=== PATIENT | female | born 1945 | race Caucasian/White ===

== ENCOUNTER 2020-02-04 08:21 | Outpatient (REF) | payer MEDICARE, OTHER, SELFPAY ==
[2020-02-04 09:25] LABS: MANUAL DIFF FLAG NO
[2020-02-04 09:28] LABS: Basophils Percent Auto 0.5 % (0-2); Eosinophils Absolute Auto 0.1 X10*3/uL (0.0-0.4); Eosinophils Percent Auto 2.1 % (0-4); Hematocrit 42.9 % (37-47); Hemoglobin 13.6 g/dl (12.0-16.0); Imm Gran Abs Auto 0.01 X10*3/uL (0.00-0.03); Imm Gran Pct Auto 0.2 % (0.0-0.4); Lymphocytes Absolute Auto 1.4 X10*3/uL (1.2-4.9); Lymphocytes Percent Auto 24.4 % (20-40); Mean Corpuscular HGB Conc 31.7 g/dl (31.0-35.0); Mean Corpuscular Volume 88.5 fL (80-98); Mean Platelet Volume 10.6 fL (9.4-12.3); Monocytes Absolute Auto 0.6 X10*3/uL (0.1-1.2); Monocytes Percent Auto 9.6 % (2-11); Neutrophils Absolute Auto 3.6 X10*3/uL (2.0-8.3); Neutrophils Percent Auto 63.2 % (45-73); Platelet Count 238 X10*3/uL (160-400); Red Blood Count 4.85 X10*6/uL (4.20-5.50); Red Cell Distribution Width 13.3 % (11.0-16.0); White Blood Count 5.7 X10*3/uL (4.8-10.8)
[2020-02-04 09:53] LABS: Alanine Aminotransferase 16 U/L (0-31); Albumin Level 4.3 g/dL (3.5-5.0); Alkaline Phosphatase 95 U/L (39-117); Anion Gap 13 (12-20); Aspartate Amino Transferase 16 U/L (5-31); Bilirubin Total 0.4 mg/dL (0.0-1.0); Blood Urea Nitrogen 23 mg/dL (9-16); Carbon Dioxide 27 mmol/L (22-29); Chloride 105 mmol/L (96-108); Cholesterol 206 mg/dL; Estimated Glomerular Filt Rate > 60; Glucose Fasting 116 mg/dL (60-99); HDL Cholesterol 72 mg/dL; LDL Cholesterol Calculated 120 mg/dl; Potassium 4.4 mmol/l (3.3-5.1); Sodium 141 mmol/L (135-145); Total Protein 6.7 g/dL (6.5-8.0); Triglycerides 71 mg/dL
[2020-02-04 10:29] LABS: Creatinine Urine 142.18 mg/dL; Microalbum/Creatinine Ratio Ur 14.7 ug/mg cr
== END 2020-02-04 08:22 | disposition home or self-care (01) ==
LOC: HO.LAB 08:21
PROVIDERS: PCP Physician Assistant; Visit Provider Physician Assistant
DX: I10 Essential (primary) hypertension (principal)
CPT/HCPCS: 36415; 80053; 80061; 82043; 85025

== ENCOUNTER 2020-07-29 10:01 | Outpatient (REF) | payer MEDICARE, OTHER, SELFPAY ==
--- NOTE | ~2020-07-29 | MM_ITS ---
EXAMINATION: MM SCREENING DIGITAL BREAST TOMOSYNTHESIS, BILATERAL CLINICAL INFORMATION: Screening. Asymptomatic. The lifetime risk of breast cancer based on the Tyrer-Cuzick Model is 5%. COMPARISON: Mammography: 07/28/2019, 03/17/2017, 02/26/2016 TECHNIQUE: Digital breast tomosynthesis is performed in both the craniocaudal and mediolateral oblique views along with computer-aided detection (CAD). Synthesized 2D images are generated from the tomosynthesis. FINDINGS: There are scattered areas of fibroglandular density (ACR BI-RADS breast composition Category b). There are no significant masses, abnormal calcifications, or other abnormalities. Parenchymal pattern is similar to prior studies. No developing density. No significant changes. MM/MM tomosynthesis screening BI IMPRESSION: No significant changes from prior studies. ASSESSMENT: BI-RADS 2: Benign RECOMMENDATION: Routine annual mammography screening. This patient's information was entered into a reminder system with a target due date for their next mammogram.
== END 2020-07-29 10:02 | disposition home or self-care (01) ==
LOC: HO.MAMMO 10:01
PROVIDERS: PCP Physician Assistant; Visit Provider Physician Assistant
DX: Z12.31 Encounter for screening mammogram for malignant neoplasm of breast (principal)
CPT/HCPCS: 77063; 77067

== ENCOUNTER 2020-08-25 10:10 | Outpatient (REF) | payer MEDICARE, OTHER, SELFPAY ==
[2020-08-25 10:53] LABS: Hematocrit 42.7 % (37-47); Mean Corpuscular HGB Conc 32.8 g/dl (31.0-35.0); Mean Corpuscular Hemoglobin 28.4 pg (27.0-33.0); Mean Corpuscular Volume 86.6 fL (80-98); Mean Platelet Volume 9.9 fL (9.4-12.3); Platelet Count 259 X10*3/uL (160-400); Red Blood Count 4.93 X10*6/uL (4.20-5.50); Red Cell Distribution Width 14.2 % (11.0-16.0); White Blood Count 7.2 X10*3/uL (4.8-10.8)
[2020-08-25 11:15] LABS: Estimated Average Glucose 126 mg/dL
[2020-08-25 11:24] LABS: Alanine Aminotransferase 16 U/L (0-31); Albumin Level 4.6 g/dL (3.5-5.0); Alkaline Phosphatase 105 U/L (39-117); Anion Gap 14 (12-20); Aspartate Amino Transferase 18 U/L (5-31); Bilirubin Total 0.5 mg/dL (0.0-1.0); Blood Urea Nitrogen 22 mg/dL (9-16); Calcium 10.1 mg/dL (8.4-10.2); Carbon Dioxide 28 mmol/L (22-29); Chloride 103 mmol/L (96-108); Cholesterol 222 mg/dL; Estimated Glomerular Filt Rate > 60; Glucose Fasting 108 mg/dL (60-99); HDL Cholesterol 81 mg/dL; LDL Cholesterol Calculated 125 mg/dl; Potassium 4.5 mmol/L (3.3-5.1); Sodium 140 mmol/L (135-145); Total Protein 7.1 g/dL (6.5-8.0); Triglycerides 84 mg/dL
== END 2020-08-25 10:11 | disposition home or self-care (01) ==
LOC: HO.LAB 10:10
PROVIDERS: PCP Physician Assistant; Visit Provider Physician Assistant
DX: R73.09 Other abnormal glucose (principal); I10 Essential (primary) hypertension
CPT/HCPCS: 36415; 80053; 80061; 83036; 85027

== ENCOUNTER 2020-10-05 13:19 | Outpatient (REF) | payer MEDICARE, OTHER, SELFPAY ==
--- NOTE | ~2020-10-05 | MM_ITS ---
EXAMINATION: BONE DENSITOMETRY CLINICAL INDICATION: Asymptomatic menopausal state. COMPARISON: Previous BD dated 07/28/2008 and baseline BD dated 04/19/2006. TECHNIQUE: Using a [employer] DXA System (software version: 13.1) manufactured by [employer], dual-energy x-ray absorptiometry was performed of the lumbar spine and left hip. The images are of good technical quality. Summary results are attached. FINDINGS: AP SPINE L1-L4: Current: BMD 1.090 g/cm2, Z-score 0.8, T-score -0.7, normal, 0.3% increase from previous, 2.6% decrease from baseline (<5% change is not significant). Prior: BMD 1.087 g/cm2. Baseline: BMD 1.119 g/cm2. LEFT FEMUR, NECK: Current: BMD 0.640 g/cm2, Z-score -1.1, T-score -2.9, osteoporosis. Prior: BMD 0.713 g/cm2. Baseline: BMD 0.748 g/cm2. LEFT FEMUR, TOTAL: Current: BMD 0.821 g/cm2, Z-score 0.1, T-score -1.5, osteopenia, 2.3% decrease from previous, 3.1% decrease from baseline (<5% change is not significant). Prior: BMD 0.840 g/cm2. Baseline: BMD 0.847 g/cm2. IDENTIFIED RISK FACTORS: Height loss, thiazide, menopause, hysterectomy, bilateral oophorectomy. HISTORY OF FRACTURE: None listed. MEDICATIONS: Calcium supplements or multivitamin, vitamin D. MM/XR DEXA axial skeleton IMPRESSION: 1. DIAGNOSIS: Osteoporosis based on the lowest T-score value of -2.9 in the femoral neck applying World Health Organization criteria. 2. 10-YEAR FRACTURE RISK PREDICTION, FRAX: Major osteoporotic fracture (clinical spine, forearm, hip or shoulder) 18.6%. Hip fracture 6.5%. 3. Treatment Recommendations: NOF guidelines recommend consideration for treatment in postmenopausal women and men age 50 and older presenting with the following: -A hip or vertebral (clinical or morphometric) fracture. -T-score less than or equal to -2.5 at the femoral neck or spine after appropriate evaluation to exclude secondary causes. -Low bone mass at the hip or spine and a 10-year fracture probability by FRAX of greater than or equal to 3% for hip fracture or greater than or equal to 20% for major osteoporotic fracture based on the [place] adapted WHO algorithm. 4. Other Recommendations: All treatment decisions require clinical judgment and consideration of individual patient factors, including patient preferences, comorbidities, previous drug use, risk factors not captured in the FRAX model (e.g. frailty, falls, vitamin D deficiency, increased bone turnover, interval significant decline in bone density) and possible under or overestimation of fracture risk by FRAX. Additional medical evaluation for secondary cause of low bone mineral density may be appropriate. FUTURE SCAN RECOMMENDATION: People with diagnosed cases of osteoporosis or at high risk for fracture should have regular bone mineral density tests. For patients eligible for Medicare, routine testing is allowed once every 2 years. The testing frequency can be increased to one year for patients who have rapidly progressing disease, those who are receiving or discontinuing medical therapy to restore bone mass, or have additional risk factors.
== END 2020-10-05 13:20 | disposition home or self-care (01) ==
LOC: HO.MAMMO 13:19
PROVIDERS: Visit Provider Nurse Practitioner Family
DX: Z13.820 Encounter for screening for osteoporosis (principal); M81.0 Age-related osteoporosis without current pathological fracture; Z78.0 Asymptomatic menopausal state; Z98.890 Other specified postprocedural states; Z90.722 Acquired absence of ovaries, bilateral; Z79.899 Other long term (current) drug therapy
CPT/HCPCS: 77080

== ENCOUNTER 2021-08-02 07:23 | Outpatient (REF) | payer MEDICARE, OTHER, SELFPAY ==
--- NOTE | ~2021-08-02 | MM_ITS ---
EXAMINATION: MM SCREENING DIGITAL BREAST TOMOSYNTHESIS, BILATERAL CLINICAL INFORMATION: Screening. Asymptomatic. The lifetime risk of breast cancer based on the Tyrer-Cuzick Model is 5%. COMPARISON: Mammography: 07/29/2020, 07/28/2019, 03/17/2017 TECHNIQUE: Digital breast tomosynthesis is performed in both the craniocaudal and mediolateral oblique views along with computer-aided detection (CAD). Synthesized 2D images are generated from the tomosynthesis. FINDINGS: There are scattered areas of fibroglandular density (ACR BI-RADS breast composition Category b). There are no significant masses, abnormal calcifications, or other abnormalities. Parenchymal pattern is similar to prior exams. Small nodular asymmetry anterior outer left breast and mid outer right breast are stable. No developing density or architectural abnormality. There are scattered benign round and some ductal secretory calcifications. The axilla and skin contours are unremarkable. MM/MM tomosynthesis screening BI IMPRESSION: No mammographic evidence of malignancy. ASSESSMENT: BI-RADS 2: Benign RECOMMENDATION: Routine annual mammography screening. This patient's information was entered into a reminder system with a target due date for their next mammogram.
== END 2021-08-02 07:24 | disposition home or self-care (01) ==
LOC: HO.MAMMO 07:23
PROVIDERS: PCP Physician Assistant; Visit Provider Physician Assistant
DX: Z12.31 Encounter for screening mammogram for malignant neoplasm of breast (principal)
CPT/HCPCS: 77063; 77067

== ENCOUNTER 2022-08-04 11:15 | Outpatient (REF) | payer MEDICARE, OTHER, SELFPAY ==
--- NOTE | ~2022-08-04 | MM_ITS ---
EXAMINATION: MM SCREENING DIGITAL BREAST TOMOSYNTHESIS, BILATERAL CLINICAL INFORMATION: Screening. Asymptomatic. The lifetime risk of breast cancer based on the Tyrer-Cuzick Model is 5.7%. COMPARISON: Mammography: This study is compared with prior mammograms dating back to 2018. TECHNIQUE: Digital breast tomosynthesis is performed in both the craniocaudal and mediolateral oblique views along with computer-aided detection (CAD). Synthesized 2D images are generated from the tomosynthesis. FINDINGS: There are scattered areas of fibroglandular density (ACR BI-RADS breast composition Category b). There are no significant masses, abnormal calcifications, or other abnormalities. MM/MM tomosynthesis screening BI IMPRESSION: No mammographic evidence of malignancy. ASSESSMENT: BI-RADS BI-RADS 1 - Negative RECOMMENDATION: Routine annual mammography screening. 1 year F/U This patient's information was entered into a reminder system with a target due date for their next mammogram.
== END 2022-08-04 11:16 | disposition home or self-care (01) ==
LOC: HO.MAMMO 11:15
PROVIDERS: Visit Provider Physician Assistant
DX: Z12.31 Encounter for screening mammogram for malignant neoplasm of breast (principal)
CPT/HCPCS: 77063; 77067

== ENCOUNTER → 2022-08-04 11:30 | Outpatient (BNV) | payer MEDICARE, OTHER, SELFPAY | PROVIDERS: Visit Provider Radiology Diagnostic Radiology | DX: Z12.31 Encounter for screening mammogram for malignant neoplasm of breast (principal) | CPT/HCPCS: 77063; 77067 ==

== ENCOUNTER 2022-09-28 07:30 | Outpatient (REF) | payer MEDICARE, OTHER, SELFPAY ==
[2022-09-28 09:07] LABS: Hematocrit 43.3 % (37.0-47.0); Mean Corpuscular HGB Conc 32.3 g/dl (31.0-35.0); Mean Corpuscular Hemoglobin 28.3 pg (27.0-33.0); Mean Corpuscular Volume 87.7 fL (80.0-98.0); Mean Platelet Volume 10.3 fL (9.4-12.3); Platelet Count 251 X10*3/uL (160-400); Red Blood Count 4.94 X10*6/uL (4.20-5.50); Red Cell Distribution Width 13.6 % (11.0-16.0); White Blood Count 6.3 X10*3/uL (4.8-10.8)
[2022-09-28 09:41] LABS: Alanine Aminotransferase 15 U/L (0-31); Albumin Level 4.1 g/dL (3.5-5.0); Alkaline Phosphatase 83 U/L (39-117); Anion Gap 13 (12-20); Aspartate Amino Transferase 15 U/L (5-31); Bilirubin Total 0.4 mg/dL (0.0-1.0); Blood Urea Nitrogen 17 mg/dL (9-16); Calcium 9.5 mg/dL (8.4-10.2); Carbon Dioxide 27 mmol/L (22-29); Chloride 106 mmol/L (96-108); Cholesterol 198 mg/dL (<200); Estimated Glomerular Filt Rate > 60; Glucose Fasting 101 mg/dL (60-99); HDL Cholesterol 75 mg/dL (>40); LDL Cholesterol Calculated 103 mg/dL (<100); Potassium 4.2 mmol/L (3.3-5.1); Sodium 142 mmol/L (135-145); Total Protein 6.9 g/dL (6.5-8.0); Triglycerides 103 mg/dL (<150)
[2022-09-28 10:02] LABS: TSH reflex Free T4 1.58 uIU/mL (0.32-4.0)
[2022-09-28 10:27] LABS: Estimated Average Glucose 114 mg/dL; Hemoglobin A1c % 5.6 % (<6.0)
[2022-09-28 11:47] LABS: Creatinine Urine 73.95 mg/dL; Microalbumin Urine < 5.0 mg/L
== END 2022-09-28 07:31 | disposition home or self-care (01) ==
LOC: HO.LAB 07:30
PROVIDERS: PCP Physician Assistant; Visit Provider Physician Assistant
DX: I10 Essential (primary) hypertension (principal); E66.9 Obesity, unspecified; R73.09 Other abnormal glucose
CPT/HCPCS: 36415; 80053; 80061; 82043; 83036; 84443; 85027

== ENCOUNTER 2022-10-06 13:42 | Outpatient (REF) | payer MEDICARE, OTHER, SELFPAY ==
--- NOTE | ~2022-10-06 | MM_ITS ---
EXAMINATION: BONE DENSITOMETRY CLINICAL INDICATION: Menopause. COMPARISON: Previous BD dated 10/05/2020 and baseline BD dated 04/19/2006. TECHNIQUE: Using a [employer] DXA System (software version: 13.1) manufactured by [employer], dual-energy x-ray absorptiometry was performed of the lumbar spine and left hip. The images are of good technical quality. Summary results are attached. FINDINGS: LEFT FEMUR, NECK: Current: BMD 0.692 g/cm2, Z-score -0.7, T-score -2.5, osteoporosis. Prior: BMD 0.640 g/cm2. Baseline: BMD 0.748 g/cm2. LEFT FEMUR, TOTAL: Current: BMD 0.826 g/cm2, Z-score 0.2, T-score -1.4, osteopenia, 0.6% decrease from previous, 2.5% decrease from baseline (<5% change is not significant). Prior: BMD 0.821 g/cm2. Baseline: BMD 0.847 g/cm2. AP SPINE L1-L4 (excluding L3): The data of L1-L4 has been changed to exclude the L3 vertebral body, because degenerative sclerosis at this level may cause overestimation of lumbar spine density. Current: BMD 1.063 g/cm2, Z-score 0.6, T-score -0.9, normal, 0.6% decrease from previous, 7.6% decrease from baseline (<5% change is not significant). Prior: BMD 1.069 g/cm2. Baseline: BMD 1.150 g/cm2. IDENTIFIED RISK FACTORS: Menopause, hysterectomy, bilateral oophorectomy, thiazide. HISTORY OF FRACTURE: None listed. MEDICATIONS: Calcium, vitamin D. MM/XR DEXA axial skeleton IMPRESSION: 1. DIAGNOSIS: Osteoporosis based on the lowest T-score value of -2.5 in the femoral neck applying World Health Organization criteria. 2. 10-YEAR FRACTURE RISK PREDICTION, FRAX: According to the guidelines, FRAX calculation should only be performed on patients in the osteopenia bone density category. Therefore, FRAX was not performed on this patient. 3. Treatment Recommendations: NOF guidelines recommend consideration for treatment in postmenopausal women and men age 50 and older presenting with the following: -A hip or vertebral (clinical or morphometric) fracture. -T-score less than or equal to -2.5 at the femoral neck or spine after appropriate evaluation to exclude secondary causes. -Low bone mass at the hip or spine and a 10-year fracture probability by FRAX of greater than or equal to 3% for hip fracture or greater than or equal to 20% for major osteoporotic fracture based on the [place] adapted WHO algorithm. 4. Other Recommendations: All treatment decisions require clinical judgment and consideration of individual patient factors, including patient preferences, comorbidities, previous drug use, risk factors not captured in the FRAX model (e.g. frailty, falls, vitamin D deficiency, increased bone turnover, interval significant decline in bone density) and possible under or overestimation of fracture risk by FRAX. Additional medical evaluation for secondary cause of low bone mineral density may be appropriate. FUTURE SCAN RECOMMENDATION: People with diagnosed cases of osteoporosis or at high risk for fracture should have regular bone mineral density tests. For patients eligible for Medicare, routine testing is allowed once every 2 years. The testing frequency can be increased to one year for patients who have rapidly progressing disease, those who are receiving or discontinuing medical therapy to restore bone mass, or have additional risk factors.
== END 2022-10-06 13:43 | disposition home or self-care (01) ==
LOC: HO.MAMMO 13:42
PROVIDERS: PCP Physician Assistant; Visit Provider Physician Assistant
DX: Z13.820 Encounter for screening for osteoporosis (principal); Z78.0 Asymptomatic menopausal state; M81.0 Age-related osteoporosis without current pathological fracture
CPT/HCPCS: 77080

== ENCOUNTER → 2022-10-06 14:00 | Outpatient (BNV) | payer MEDICARE, OTHER, SELFPAY | PROVIDERS: PCP Physician Assistant; Visit Provider Radiology Diagnostic Radiology | DX: M81.0 Age-related osteoporosis without current pathological fracture (principal) | CPT/HCPCS: 77080 ==

== ENCOUNTER 2022-12-01 11:47 | Outpatient (AMB) | payer MEDICARE, OTHER, SELFPAY ==
--- NOTE | 2022-12-01 11:48 | AM.OFFVISMDC ---
Intake Vital Signs 12/01/22 11:49 Height 4 ft 10.5 in Weight 162 lb 0.2 oz BMI 33.3 BP 124/68 Blood Pressure Location Lt brachial Position Sitting Pulse 78 Pulse Source Pulse Oximeter Pulse Oximetry (%) 96 Oxygen Delivery Method Room Air Intake Visit Reasons: AWV/last 11/24/21. Intake Note: Patient is here for an Annual Wellness Visit. Adventure Therapist Required: No Allergies Seasonal Allergies Allergy (Verified 12/01/22 12:04) Sneezing Medication List - Last Reconciled 12/01/22 by BRITTANY Castillo alendronate 70 mg PO QWEEK 12 weeks calcium carbonate (Oyster Shell Calcium) 500 mg PO BID 90 days cholecalciferol (vitamin D3) 50 mcg PO DAILY 90 days hydrochlorothiazide 25 mg PO DAILY 90 days lisinopril 5 mg PO DAILY 90 days omeprazole 40 mg PO DAILY 90 days Fall Risk Assessment Fall risk assessment: No Falls in past year Date Fall Risk Assessed: 12/01/22 HPI AWV/last 11/24/21. HPI Details Patient is a 77-year-old female who presents today for subsequent wellness visit. Patient of FRANNIE Aguilar. Patient is up-to-date with her health preventative screenings. Colonoscopy is due in 2023. Bone density screen 10/2022 with osteoporosis. Mammogram 07/2022 which was normal. Patient declined flu vaccine. [place] of care was reviewed with the patient and she was provided with a screening schedule. End of life planning was discussed with the patient and she was provided with healthcare proxy and MOLST forms. [facility] Medical History Post-menopausal Surgical History History of colonoscopy History of excision of lesion History of total abdominal hysterectomy and bilateral salpingo-oophorectomy Family History Father CAD (coronary artery disease) Myocardial infarction Mother CAD (coronary artery disease) Myocardial infarction Social History Housing: House Alcohol intake: never Patient Tobacco Use Status: Former Tobacco user Quit Date: 1985 e-Cigarette/Vaping Use: Never Used Second Hand Smoke Exposure: No service: No Current occupational status: employed and retired Cognitive needs: No Hearing needs: No Vision needs: Yes (glasses) Questionnaire Medicare Wellness Checkup [age] What gender do you identify with?: female During the past 4 weeks, how much have you been bothered by emotional problems such as feeling anxious, depressed, irritable, sad or downhearted, and blue?: not at all During the past 4 weeks, has your physical & emotional health limited your social activities with family, friends, neighbors, or groups?: not at all During the past 4 weeks, how much bodily pain have you generally had?: no pain During the past 4 weeks, was someone available to help you if you needed & wanted help?: yes, as much as I wanted During the past 4 weeks, what was the hardest physical activity you could do for at least 2 minutes?: heavy Can you get to places out of walking distance without help? (For eg., can you travel alone on buses, taxis or drive your car?): Yes Can you go shopping for groceries or clothes without someone's help?: Yes Can you prepare your own meals?: Yes Can you do your housework without help?: Yes Because of any health problems, do you need the help of another person with your personal care needs such as eating, bathing, dressing or getting around the house?: No Can you handle your own money without help?: Yes During the past 4 weeks, how would you rate your health in general?: excellent During the past 4 weeks how have things been going for you?: very well; could hardly better Are you having difficulties driving your car?: no Do you always fasten your seat belt when you are in a car?: yes, usually During past 4 weeks, have you been bothered by the following: never: Falling or dizzy when standing up, Sexual problems?, Trouble eating well?, Teeth or denture problems?, Problems using the telephone? and Tiredness or fatigue? Have you fallen 2 or more times in the past year?: No Are you afraid of falling?: No Are you a smoker?: no During the past 4 weeks, how many drinks of wine, beer, or other alcoholic beverages did you have?: no alcohol at all Do you exercise for about 20 minutes 3 or more times a week?: yes, most of the time Have you been given information to help with the following?: no: Hazards in your house that might hurt you? and no: Keeping track of your medications? How often do you have trouble taking medicines the way you have been told to take them?: I always take medicine as prescribed How confident are you that you can control & manage most of your health problems?: very confident What is your race?: White Mini Mental State Exam (MMSE) Orientation What is the (year) (season) (date) (day) (month)?: year, season, date, day and month Score Score: 5 Activity of Daily Living Bathing - sponge bath, tub bath or shower: receives no assistance (gets in/out by self, if usual bathing means Dressing - getting clothes from closets & drawers, including inner/outer garments & fasteners.: gets clothes & gets completely dressed without help Toileting - going to the 'toilet room' for urine/bowel elimination & cleaning self/arranging clothes: goes to toilet room, cleans self, arranges clothes without help Transfer: moves in & out of bed and chair without help (may use support object) Continence: controls urination/bowel movements completely by self Feeding: feeds self without help Total Score: 0 Information obtained from: patient Using telephone: independent Traveling: independent Shopping: independent Preparing meals: independent Housework: independent Taking medicine: independent Managing money: independent PHQ-9 Over the last 2 weeks, how often have you been bothered by any of the following problems? 1. Little interest or pleasure in doing things: not at all 2. Feeling down, depressed, or hopeless: not at all 3. Trouble falling or staying asleep, or sleeping too much: not at all 4. Feeling tired or having little energy: not at all 5. Poor appetite or overeating: not at all 6. Feeling bad about yourself - or that you are a failure or have let yourself or your family down: not at all 7. Trouble concentrating on things, such as reading the newspaper or watching television: not at all 8. Moving or speaking so slowly that other people could have noticed. Or the opposite - being so fidgety or restless that you have been moving around a lot more than usual: not at all 9. Thoughts that you would be better off or of hurting yourself in some way: not at all Total score: 0 Depression Screening Interpretation: Negative Depression Screening Done: Yes 52547 - PHQ-9 Billing: Yes Source: Developed by Drs. Jose Orourke, Sheri Carbajal, Romeo Godinez and colleagues, with an educational candace from [employer]. MANJU-7 AMB Questionnaire MANJU-7 Date MANJU - 7 assessed: 05/09/22 Source: Developed by Drs. Jose Orourke, Sheri Carbajal, Romeo Godinez and colleagues, with an educational candace from [employer]. AUDIT C Alcohol Use Questionnaire (AUDIT-C) 1. How often do you have a drink containing alcohol?: Never Total Score: 0 Score Reviewed/Action Taken: No Thrive Questionnaire Date Thrive assessed: 05/09/22 Physical Exam Vital Signs: Last Vital Signs Pulse 78 12/01/22 11:49 BP 124/68 12/01/22 11:49 Pulse Ox 96 12/01/22 11:49 Oxygen Delivery Method Room Air 12/01/22 11:49 BMI result Body Mass Index 33.3 Const General: cooperative and no acute distress Orientation/consciousness: patient oriented x3 HEENT Other: Whisper test: pass Neuro Other: Balance: Normal Get up and walk: able to Romberg: negative Tandem gait: unable to General: patient oriented x3 Assessment & Plan Assessment & Plan (1) Adult general medical exam: Code(s): Z00.00 - Encounter for general adult medical examination without abnormal findings (2) Impaired glucose metabolism: Code(s): R73.09 - Other abnormal glucose Plan: A1c 5.6 09/2022 (3) HTN (hypertension): Code(s): I10 - Essential (primary) hypertension Qualifiers: Hypertension type: primary hypertension Qualified Code(s): I10 - Essential (primary) hypertension Plan: Continue current treatment. Reinforced low-sodium diet and exercise as tolerated. (4) GERD (gastroesophageal reflux disease): Code(s): K21.9 - Gastro-esophageal reflux disease without esophagitis Plan: Continue current treatment. Encouraged to avoid GERD trigger foods. (5) Osteoporosis: Code(s): M81.0 - Age-related osteoporosis without current pathological fracture Qualifiers: Osteoporosis type: age-related Presence of current pathological fracture: unspecified Qualified Code(s): M81.0 - Age-related osteoporosis without current pathological fracture Plan: On alendronate weekly (6) Obese: Code(s): E66.9 - Obesity, unspecified Qualifiers: Obesity type: due to excess calories Obesity classification: adult class 1 (BMI 30 - 34.9) Serious obesity comorbidity presence: without serious comorbidity Body mass index: BMI 33.0-33.9 Qualified Code(s): E66.09 - Other obesity due to excess calories; Z68.33 - Body mass index [BMI] 33.0-33.9, adult Plan: Healthy food choices and exercise as tolerated Quality Reporting (2019) Fall Risk Screening ([facility] 139) Last assessed Fall Risk: 12/01/22 Fall risk assessment: No Falls in past year Depression/Bipolar (159/160/161/177) PHQ-9: Total score: 0 Coding Level of Care Code Medicare Subsequent (G0439) Diagnoses Adult general medical exam Z00.00 Impaired glucose metabolism R73.09 Primary hypertension I10 Hypertension type: primary hypertension GERD (gastroesophageal reflux disease) K21.9 Age related osteoporosis, unspecified pathological fracture presence M81.0 Osteoporosis type: age-related Presence of current pathological fracture: unspecified Class 1 obesity due to excess calories without serious comorbidity with body mass index (BMI) of 33.0 to 33.9 in adult E66.09; Z68.33 Obesity type: due to excess calories Obesity classification: adult class 1 (BMI 30 - 34.9) Serious obesity comorbidity presence: without serious comorbidity Body mass index: BMI 33.0-33.9 CPT Codes Advance Care Planning - Time spent: 1-15 minutes, not on file ([id number]) Advance Care Planning Date of discussion: 12/01/22 Who was present: pt and social media designer Forms completed: None Time spent: 1-15 minutes, not on file Actual minutes spent: 3 Did not discuss due to Cultural/Spiritual beliefs: No
[2022-12-01 11:49] VITALS: BP 124/68; PULSE 78; O2SAT 96; BMI 33.3
== END 2022-12-01 12:12 | disposition home or self-care (01) ==
PROVIDERS: Visit Provider Nurse Practitioner Family
DX: Z00.00 Encounter for general adult medical examination without abnormal findings (principal); R73.09 Other abnormal glucose; I10 Essential (primary) hypertension; K21.9 Gastro-esophageal reflux disease without esophagitis; M81.0 Age-related osteoporosis without current pathological fracture; E66.09 Other obesity due to excess calories; Z68.33 Body mass index [BMI] 33.0-33.9, adult
CPT/HCPCS: 1124F; G0439

== ENCOUNTER 2022-12-22 10:19 | Outpatient (AMB) | payer MEDICARE, OTHER, SELFPAY ==
--- NOTE | 2022-12-22 11:27 | AM.OFFWIN_ITS ---
Intake Vital Signs 12/22/22 11:35 Height 4 ft 10.5 in Weight 160 lb 4 oz BMI 32.9 BP 130/80 Blood Pressure Location Lt brachial Position Sitting Pulse 89 Pulse Source Pulse Oximeter Temp 99.4 F Temp Source Temporal Artery Scan Pulse Oximetry (%) 97 Oxygen Delivery Method Room Air Intake Visit Reasons: EST/wheezing(lobby masked) Intake Note: pt is here for c/o wheezing Patient Tobacco Use Status: Former Tobacco user Quit Date: 1985 Allergies Seasonal Allergies Allergy (Verified 12/22/22 11:36) Sneezing Do you need a note to return to daycare/school/sports/work: Yes HPI HPI Comments History of Present Illness Details This is a 77-year-old female who presents to the office today for sick visit. Patient complaining of wheezing and dry cough x3 days. Patient states she has had some mild nasal congestion, rhinorrhea, and postnasal drip for the past several days. She started to develop a dry cough as well as wheezing about 3 days ago. She denies any shortness of breath. She denies any chest pain. She denies any fevers or chills. She denies any abdominal pain or nausea/vomiting/diarrhea. FORMERLY [facility], 1928–1983 Medical History Post-menopausal Surgical History History of colonoscopy History of excision of lesion History of total abdominal hysterectomy and bilateral salpingo-oophorectomy Family History Father CAD (coronary artery disease) Myocardial infarction Mother CAD (coronary artery disease) Myocardial infarction Social History Housing: House Alcohol intake: never Patient Tobacco Use Status: Former Tobacco user Quit Date: 1985 e-Cigarette/Vaping Use: Never Used Second Hand Smoke Exposure: No service: No Current occupational status: employed and retired Cognitive needs: No Hearing needs: No Vision needs: Yes (glasses) Review of Systems Const All systems reviewed & are unremarkable except as noted in HPI and below Reports no additional complaints Eyes Reports no additional complaints ENT Reports no additional complaints Card Reports no additional complaints Resp Reports no additional complaints GI Reports no additional complaints Reports no additional complaints Musc Reports no additional complaints Skin/Breast Reports system reviewed and no additional complaints, except as documented Neuro Reports no additional complaints Psych Reports no additional complaints Endo Reports no additional complaints Carmelo/Lymph Reports no additional complaints Aller/Immun Reports no additional complaints Physical Exam Vital Signs: Last Vital Signs Temp 99.4 F 12/22/22 11:35 Pulse 89 12/22/22 11:35 BP 130/80 12/22/22 11:35 Pulse Ox 97 12/22/22 11:35 Oxygen Delivery Method Room Air 12/22/22 11:35 BMI result Body Mass Index 32.9 Const Other: Vital signs reviewed. Constitutional: Non-toxic appearing. No acute distress. Well-developed and well-nourished. HEENT: Normocephalic and atraumatic. +Post-nasal drip. Skin: Warm and dry. No rashes or lesions noted. Neck: Full and painless range of motion. No cervical lymphadenopathy. Cardio: Regular rate and rhythm. No lower extremity edema. No JVD. Pulmonary: No respiratory distress. No accessory muscle usage. Scant expiratory wheezing throughout otherwise clear. Gastrointestinal: Soft, nontender, and nondistended in all 4 quadrants. Normoactive bowel sounds in all 4 quadrants. Genitourinary: No CVA tenderness. Musculoskeletal: Normal range of motion in joints throughout the body. No deformity or other signs of injury. Neuro: Alert and oriented x4. Cranial nerves 2-12 grossly intact. No focal deficits appreciated. Psych: Normal mood and affect. Assessment & Plan Assessment & Plan (1) Acute bronchitis: Code(s): J20.9 - Acute bronchitis, unspecified Plan This is a 77-year-old female presenting to the office complaining of a dry cough and wheezing x3 days. On physical examination, patient has scant expiratory wheezing throughout but her physical exam is otherwise benign her vital signs are stable and she is overall nontoxic appearing. History and physical most consistent with an acute bronchitis. Low suspicion for pneumonia at this time given no sputum production or fever/chills. Patient sent home on p.o. prednisone 40 mg daily x5 days as well as p.o. benzonatate 100 mg 3 times daily as needed for cough. Patient was advised to follow-up here or proceed to the emergency room if she were to develop sputum production, shortness of breath, or fever/chills. Patient verbalizes her understanding and she is in agreement with the plan. Medications: New prednisone 40 mg (2 x 20 mg) PO DAILY 10 tabs 0RF benzonatate 100 mg PO TID PRN 14 caps 0RF cough Coding Level of Care Code Est Pt Level 3 (06539) Diagnoses Acute bronchitis J20.9
[2022-12-22 11:35] VITALS: BP 130/80; PULSE 89; TEMP 37.4; O2SAT 97; BMI 32.9
== END 2022-12-22 12:08 | disposition home or self-care (01) ==
PROVIDERS: PCP Physician Assistant; Visit Provider Physician Assistant Medical
DX: J20.9 Acute bronchitis, unspecified (principal)
CPT/HCPCS: 99213

== ENCOUNTER 2022-12-26 09:10 | Outpatient (AMB) | payer MEDICARE, OTHER, SELFPAY ==
[2022-12-26 09:38] VITALS: BP 126/74; PULSE 87; TEMP 37.2; O2SAT 97; BMI 33.7
--- NOTE | 2022-12-26 09:38 | AM.OFFWIN_ITS ---
Intake Vital Signs 12/26/22 09:38 Height 4 ft 10 in Weight 161 lb 8 oz BMI 33.7 BP 126/74 Blood Pressure Location Lt brachial Position Sitting Pulse 87 Pulse Source Pulse Oximeter Temp 98.9 F Temp Source Oral Pulse Oximetry (%) 97 Oxygen Delivery Method Room Air Intake Visit Reasons: EP, cough, congestion, sore throat (masked) Intake Note: Patient is here with cough, congestion, still after being seen on Sunday. Patient Tobacco Use Status: Former Tobacco user Quit Date: 1985 Allergies Seasonal Allergies Allergy (Verified 12/26/22 09:39) Sneezing Do you need a note to return to daycare/school/sports/work: No HPI HPI Comments History of Present Illness Details Patient is a 77-year-old female in today for sick visit. She was last seen in this walk-in 4 days prior to arrival for symptoms of cough, congestion, and sore throat. She was given prednisone and Tessalon Perles to treat the cough. She returns today with similar symptoms but states that her cough is got worse. She has not tried any [id number] medications for relief. Denies any nausea vomiting, fevers, chills malaise. States that her sore throat is also got more. Denies chest pain or shortness of breath. She states she feels like she has mucus. In her chest and she just can not get it out. Patient's head is normocephalic, TMs clear intact pearly damon, clear nasal discharge, sinus tenderness, pharynx erythema. Patient has rhonchi in upper lobes bilaterally. Heart sounds regular rate and rhythm, S1-S2, no rubs gallops murmurs. Patient has no edema or swelling. This is likely to be upper respiratory infection, unlikely to be epiglottitis, acute respiratory distress, or pose a threat to the airway. Patient will be given short dose prednisone, azithromycin, and be instructed to take guanfacine to help with mucus clearance. Patient has also been instructed to stay adequately hydrated. She has been educated on side effects of medication and how to take appropriately. She has been educated on signs of worsening symptoms when to return to the walk-in or when to present to the ER. [facility] Medical History Post-menopausal Surgical History History of colonoscopy History of excision of lesion History of total abdominal hysterectomy and bilateral salpingo-oophorectomy Family History Father CAD (coronary artery disease) Myocardial infarction Mother CAD (coronary artery disease) Myocardial infarction Housing: House Alcohol intake: never Patient Tobacco Use Status: Former Tobacco user Quit Date: 1985 e-Cigarette/Vaping Use: Never Used Second Hand Smoke Exposure: No service: No Current occupational status: employed and retired Cognitive needs: No Hearing needs: No Vision needs: Yes (glasses) Review of Systems Const Details: Constitutional : No Weight loss, No Fever, No Chills, No Fatigue. ENT/Mouth : Admits sore throat, Admits Rhinorrhea Cardiovascular : No Chest Pain, No SOB, No Dyspnea on Exertion, No Orthopnea, No Edema, No Palpitations Respiratory : Admits Cough, Admits Sputum, No Wheezing Gastrointestinal : No Nausea, No Vomiting, No Diarrhea, No Constipation, No abdominal Pain, No Hematochezia, No Melena Heme/Lymph: No Bruising, No Bleeding,No Lymphadenopathy All other systems reviewed and are negative Physical Exam Vital Signs: Last Vital Signs Temp 98.9 F 12/26/22 09:38 Pulse 87 12/26/22 09:38 BP 126/74 12/26/22 09:38 Pulse Ox 97 12/26/22 09:38 Oxygen Delivery Method Room Air 12/26/22 09:38 BMI result Body Mass Index 33.7 Vital signs reviewed and stable Const Other: Appearance: Alert.? Oriented X3.? No acute distress.? Head: Normocephalic, atraumatic. Eyes: Pupils equal, round and reactive to light.? ENT: Pharynx erythema. Neck: Normal inspection.? Neck supple.? CVS: Normal heart rate and rhythm.? Pulses normal.? Respiratory: No respiratory distress.? Rhochi upper lobes bilaterally. ? Neuro: Oriented X 3.? No motor deficit.? No sensory deficit. General: cooperative and no acute distress Assessment & Plan Assessment & Plan (1) Upper respiratory infection: Code(s): J06.9 - Acute upper respiratory infection, unspecified Qualifiers: URI type: unspecified URI Qualified Code(s): J06.9 - Acute upper respiratory infection, unspecified Plan: Patient will be given short course steroids, azithromycin to be taken in its entirety and appropriately, and Mucinex. Patient has been instructed to stay hydrated and drink plenty of water to assist with mucus clearance. She has been educated that if she develops a fever, experiences shortness of breath, or sees no improvement to return to the walk-in clinic or to present to the emergency room. Patient is agreeable to this plan. Orders: Orders SARS-CoV2/FLU/RSV 12/26/22 J06.9 - Acute upper respiratory infection, unspecified Medications: New prednisone 20 mg PO BID 6 tabs 0RF azithromycin For 250 mg dose pack: take 500 mg today (day 1), then 250 mg for 4 days (days 2-5) PO 6 tabs 0RF Discontinued prednisone Discontinued Reason: Patient no longer taking 40 mg (2 x 20 mg) PO DAILY 10 tabs 0RF Coding Level of Care Code Est Pt Level 4 (25269) Diagnoses Upper respiratory tract infection, unspecified type J06.9 URI type: unspecified URI
== END 2022-12-26 10:21 | disposition home or self-care (01) ==
PROVIDERS: PCP Physician Assistant; Visit Provider Nurse Practitioner Primary Care
DX: J06.9 Acute upper respiratory infection, unspecified (principal)
CPT/HCPCS: 99214

== ENCOUNTER 2022-12-26 10:01 | Outpatient (REF) | payer MEDICARE, OTHER, SELFPAY ==
[2022-12-26 16:06] LABS: Influenza A PCR NEGATIVE (Negative); Influenza B PCR NEGATIVE (Negative); Resp Syncy Virus RNA Qual PCR NEGATIVE (Negative); SARS COV2 PCR INHOUSE NEGATIVE (Negative)
== END 2022-12-26 10:02 | disposition home or self-care (01) ==
LOC: HO.LAB 10:01
PROVIDERS: Visit Provider Nurse Practitioner Primary Care
DX: J06.9 Acute upper respiratory infection, unspecified (principal); Z11.52 Encounter for screening for COVID-19
CPT/HCPCS: 0241U

== ENCOUNTER 2023-05-29 11:21 | Outpatient (AMB) | payer MEDICARE, OTHER, SELFPAY ==
[2023-05-29 11:23] VITALS: BP 136/66; PULSE 70; O2SAT 98; BMI 33.9
--- NOTE | 2023-05-29 11:23 | A.OFFPC_ITS ---
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 Accompanied by: Self / Same As Patient Allergies Seasonal Allergies Allergy (Verified 05/29/23 11:39) Sneezing Medication List - Last Reconciled 05/29/23 by Don Aguilar PA-C alendronate 70 mg PO QWEEK 12 weeks calcium carbonate (Oyster Shell Calcium) 500 mg PO BID 90 days cholecalciferol (vitamin D3) 50 mcg PO DAILY 90 days hydrochlorothiazide 25 mg PO DAILY 90 days lisinopril 5 mg PO DAILY 90 days omeprazole 40 mg PO DAILY 90 days Tobacco use date assessed: 05/29/23 Fall risk assessment: No Falls in past year Last assessed Fall Risk: 05/29/23 Dental Screening Dental Screen Date: 05/29/23 Did you have a dental visit in the last 12 months?: No Did you have a dental problem in the last 6 months where you did not have access to dental care?: No Was dental information given to patient?: No (Dentures) HPI 6 month f/u HPI Details Patient is a 77-year-old female here today for follow-up visit. Patient has a past medical history significant for hypertension, osteoporosis, GERD. .. HTN: Patient's blood pressure today in office acceptable. .. GERD: Has been stable with daily use of PPI therapy. .. Obesity: BMI remains at 33.9. She does not do any formal exercise. Patient reports her diet has been poor. .. Osteoporosis: Patient continues on the alendronate. DEXA in 2020 showing T- score of-2.9. Dexa in 2022 showing T-score -2.5. Laboratory Tests 08/25/20 10:20 RBC 4.93 Creatinine 0.77 Cholesterol 222 LDL Cholesterol, C alc 125 PFSH Medical History Post-menopausal Surgical History History of colonoscopy History of excision of lesion History of total abdominal hysterectomy and bilateral salpingo-oophorectomy Family History Father CAD (coronary artery disease) Myocardial infarction Mother CAD (coronary artery disease) Myocardial infarction Social History Housing: House Alcohol intake: never Patient Tobacco Use Status: Former Tobacco user Quit Date: 1985 e-Cigarette/Vaping Use: Never Used Second Hand Smoke Exposure: No service: No Current occupational status: employed and retired Cognitive needs: No Hearing needs: No Vision needs: Yes (glasses) Questionnaire PHQ-9 Over the last 2 weeks, how often have you been bothered by any of the following problems? 1. Little interest or pleasure in doing things: not at all 2. Feeling down, depressed, or hopeless: not at all 3. Trouble falling or staying asleep, or sleeping too much: not at all 4. Feeling tired or having little energy: not at all 5. Poor appetite or overeating: not at all 6. Feeling bad about yourself - or that you are a failure or have let yourself or your family down: not at all 7. Trouble concentrating on things, such as reading the newspaper or watching television: not at all 8. Moving or speaking so slowly that other people could have noticed. Or the opposite - being so fidgety or restless that you have been moving around a lot more than usual: not at all 9. Thoughts that you would be better off or of hurting yourself in some wa y: not at all Total score: 0 Depression Screening Interpretation: Negative Depression Screening Done: Yes 62256 - PHQ-9 Billing: Yes Source: Developed by Drs. Jose Orourke, Sheri Carbajal, Romeo Godinez and colleagues, with an educational candace from [facility]. Thrive Questionnaire Date Thrive assessed: 05/29/23 I am a: Patient What is your living situation today?: I have a steady place to live Within the past 12 months, did the food you bought not last and you didn't have the money to get more?: Never true Within the past 12 months, did you worry whether your food would run out before you got money to buy more?: Never true Do you have trouble paying for medicines?: No Do you have trouble getting transportation to medical appointments?: No Do you have trouble paying your heating and electricity bill?: No Do you have trouble taking care of your child, family member or friend?: No Do you have trouble with day-to-day activities such as bathing, preparing meals, shopping, managing finances, etc.?: No Are you currently unemployed and looking for a job?: No Are you interested in more education?: No Please select the resources that you would like help with: None Currently or been in a relationship where the following occur: no concerns reported THRIVE Score: 0 AUDIT C Alcohol Use Questionnaire (AUDIT-C) 1. How often do you have a drink containing alcohol?: Never 3. How often do you have six or more drinks on one occasion?: Never Total Score: 0 Score Reviewed/Action Taken: No MANJU-7 AMB Questionnaire MANJU-7 Date MANJU - 7 assessed: 05/29/23 Feeling nervous, anxious, or on edge: 0 = Not at all Not being able to stop or control worryin = Not at all Worrying too much about different things: 0 = Not at all Trouble relaxin = Not at all Being so restless that it is hard to sit still: 0 = Not at all Becoming easily annoyed or irritable: 0 = Not at all Feeling afraid as if something awful might happen: 0 = Not at all Total MANJU-7 score (0-4 normal; 5-9 mild; 10-14 moderate; 15-21 severe): 0 Source: Developed by Drs. Jose Orourke, Sheri Carbajal, Romeo Godinez and colleagues, with an educational candace from [facility]. MANJU-7 Assessment Billing MANJU-7 Assessment Tool: MANJU-7 Assessment 88263 Review of Systems Const Denies headache(s) Eyes Denies loss of vision ENT Denies vertigo, Denies dizziness, Denies headache(s) and Denies sore throat Card Denies chest pain, Denies leg edema and Denies lightheadedness Resp Denies cough, Denies hemoptysis and Denies wheezing GI Denies abdominal pain, Denies melena, Denies constipation, Denies diarrhea and Denies vomiting Denies urinary frequency, Denies dysuria and Denies urinary urgency Musc Denies arthralgias, Denies joint swelling, Denies numbness and Denies tingling Neuro Denies Abnormal speech present, Denies behavioral changes, Denies vertigo, Denies dizziness, Denies headache(s), Denies loss of vision, Denies memory loss, Denies numbness and Denies tingling Psych Denies anxiety, Denies behavioral changes, Denies depression, Denies memory loss and Denies panic attacks Carmelo/Lymph Denies easy bleeding and Denies easy bruising Aller/Immun Denies wheezing Physical exam (Primary Care) Vital Signs: Last Vital Signs Pulse 70 05/29/23 11:23 BP 136/66 05/29/23 11:23 Pulse Ox 98 05/29/23 11:23 Oxygen Delivery Method Room Air 05/29/23 11:23 BMI result Body Mass Index 33.9 Tobacco/Smoking Status: Tobacco use Status Tobacco use date assessed 05/29/23 05/29/23 11:36 Patient Tobacco Use Status Former Tobacco user 05/29/23 11:25 e-Cigarette/Vaping Use Never Used 05/29/23 11:25 PHQ-9: PHQ-9 Score PHQ-9: Total score 0 05/29/23 11:40 Depression Screening Interpretation: Negative Thrive Assessment: Date of Thrive Assessment Date Thrive assessed 05/29/23 05/29/23 11:36 Currently or been in a relationship where the following occur: no concerns reported Const General: healthy appearing, no acute distress, alert and awake Nutritional Appearance: well nourished Orientation/consciousness: oriented to person, oriented to place and oriented to time HENMT Ears: TM's normal bilaterally General nose exam: Normal nasal mucous membranes and turbinates present Eyes Conjunctivae: conjunctivae normal Sclerae: sclerae normal Pupils: Equal, round and reactive pupils present Neck Neck: Yes no lymphadenopathy and Yes no JVD Thyroid: Thyroid normal Carotids: no bruits Resp Effort & Inspection: normal respiratory effort and not tachypneic Auscultation: no crackles, no rales, no rhonchi and no wheezes Cardio Rate: regular rate Rhythm: regular rhythm Heart sounds: no murmurs and normal S1 and S2 GI Palpation (GI): Soft to palpation, nontender, no hepatomegaly and no splenomegaly Auscultation: normal bowel sounds Skin General skin exam: no rashes or lesions noted and dry skin Neuro General: oriented to person, oriented to place and oriented to time Cranial nerves: Yes Equal, round and reactive pupils present Speech: No Abnormal speech present Gait exam (Neuro): Normal gait present Motor exam (neuro): no tremor noted Extrem Right upper extremity: full ROM Left upper extremity: full ROM Right lower extremity: full ROM; no edema Left lower extremity: full ROM; no edema Psych Mental Status: mental status grossly normal Speech and movement: Normal speech and movement present Affect: normal affect Attitude: cooperative Thought process: Normal thought process present Assessment and Plan Assessment & Plan (1) HTN (hypertension): Code(s): I10 - Essential (primary) hypertension Qualifiers: Hypertension type: primary hypertension Qualified Code(s): I10 - Essential (primary) hypertension Plan: Patient's blood pressure acceptable today in office. Will continue her current dose of antihypertensive medication with goal blood pressure to be 40/90 (2) Obese: Code(s): E66.9 - Obesity, unspecified Qualifiers: Body mass index: BMI 33.0-33.9 Obesity classification: adult class 1 (BMI 30 - 34.9) Obesity type: due to excess calories Serious obesity comorbidity presence: without serious comorbidity Qualified Code(s): E66.09 - Other obesity due to excess calories; Z68.33 - Body mass index [BMI] 33.0-33.9, adult Plan: Unfortunately has gained weight since last office visit. Patient reports dietary indiscretion. She recently joined a gym and plans on being more physically active to reduce her weight. (3) Impaired glucose metabolism: Code(s): R73.09 - Other abnormal glucose Plan: Patient has a history of impaired glucose metabolism in thus has been trying to work on lifestyle modifications to reduce her carbohydrates in her diet. Unfortunately has gained weight since last office visit. Will recheck fasting blood sugar to ensure not in diabetic range. (4) Colon cancer screening: Code(s): Z12.11 - Encounter for screening for malignant neoplasm of colon Plan: She is in need of screening colonoscopy. (5) Osteoporosis: Code(s): M81.0 - Age-related osteoporosis without current pathological fracture Qualifiers: Osteoporosis type: age-related Presence of current pathological fracture: unspecified Qualified Code(s): M81.0 - Age-related osteoporosis without current pathological fracture Plan: Patient continues on alendronate weekly. Most recent bone density showing improved T-score from -2.9 to -2.5 in the femoral neck. Orders: Orders Microalbumin, Random (w Creat) 05/29/23 I10 - Essential (primary) hypertension Hemoglobin A1c 05/29/23 R73.09 - Other abnormal glucose Complete Blood Count no Diff 05/29/23 I10 - Essential (primary) hypertension Comprehensive [place]. Panel Fast 05/29/23 I10 - Essential (primary) hypertension Referrals Gastroenterology Referral Z12.11 - Encounter for screening for malignant neoplasm of colon Patient Instructions: Goals: Blood pressure to remain below 140/90 Barriers: Compliance with healthy eating habits and exercise. Coding Level of Care Code Est Pt Level 4 (00585) Diagnoses Primary hypertension I10 Hypertension type: primary hypertension Class 1 obesity due to excess calories without serious comorbidity with body mass index (BMI) of 33.0 to 33.9 in adult E66.09; Z68.33 Body mass index: BMI 33.0-33.9 Obesity classification: adult class 1 (BMI 30 - 34.9) Obesity type: due to excess calories Serious obesity comorbidity presence: without serious comorbidity Impaired glucose metabolism R73.09 Colon cancer screening Z12.11 Age related osteoporosis, unspecified pathological fracture presence M81.0 Osteoporosis type: age-related Presence of current pathological fracture: unspecified Additional Codes MANJU-7 Assessment Billing - MANJU-7 Assessment Tool: MANJU-7 Assessment 06236 ([id number])
== END 2023-05-29 11:52 | disposition home or self-care (01) ==
PROVIDERS: PCP Physician Assistant; Visit Provider Physician Assistant
DX: I10 Essential (primary) hypertension (principal); E66.09 Other obesity due to excess calories; Z68.33 Body mass index [BMI] 33.0-33.9, adult; R73.09 Other abnormal glucose; Z12.11 Encounter for screening for malignant neoplasm of colon; M81.0 Age-related osteoporosis without current pathological fracture
CPT/HCPCS: 99214

== ENCOUNTER 2023-06-09 08:11 | Outpatient (REF) | payer MEDICARE, OTHER, SELFPAY ==
[2023-06-09 08:57] LABS: Hematocrit 44.5 % (37.0-47.0); Hemoglobin 14.3 g/dl (12.0-16.0); Mean Corpuscular HGB Conc 32.1 g/dl (31.0-35.0); Mean Corpuscular Hemoglobin 28.4 pg (27.0-33.0); Mean Corpuscular Volume 88.3 fL (80.0-98.0); Mean Platelet Volume 10.1 fL (9.4-12.3); Platelet Count 261 X10*3/uL (160-400); Red Blood Count 5.04 X10*6/uL (4.20-5.50); Red Cell Distribution Width 13.8 % (11.0-16.0); White Blood Count 6.5 X10*3/uL (4.8-10.8)
[2023-06-09 09:46] LABS: Alanine Aminotransferase 16 U/L (0-31); Albumin Level 4.4 g/dL (3.5-5.0); Alkaline Phosphatase 86 U/L (39-117); Anion Gap 16 (12-20); Aspartate Amino Transferase 17 U/L (5-31); Bilirubin Total 0.4 mg/dL (0.0-1.0); Blood Urea Nitrogen 19 mg/dL (9-16); Calcium 9.7 mg/dL (8.4-10.2); Carbon Dioxide 26 mmol/L (22-29); Chloride 104 mmol/L (96-108); Estimated Glomerular Filt Rate > 60; Glucose Fasting 109 mg/dL (60-99); Sodium 142 mmol/L (135-145); Total Protein 7.2 g/dL (6.5-8.0)
[2023-06-09 10:03] LABS: Estimated Average Glucose 123 mg/dL; Hemoglobin A1C 149.6344 umol/L; Hemoglobin A1c % 5.9 % (<6.0)
[2023-06-09 10:06] LABS: Creatinine Urine 134.88 mg/dL; Microalbum/Creatinine Ratio Ur 9.6 ug/mg cr (<30)
== END 2023-06-09 08:12 | disposition home or self-care (01) ==
LOC: HO.LAB 08:11
PROVIDERS: PCP Physician Assistant; Visit Provider Physician Assistant
DX: R73.09 Other abnormal glucose (principal); I10 Essential (primary) hypertension
CPT/HCPCS: 36415; 80053; 82043; 82570; 83036; 85027

== ENCOUNTER 2023-08-21 11:36 | Outpatient (REF) | payer MEDICARE, OTHER, SELFPAY ==
--- NOTE | ~2023-08-21 | MM_ITS ---
EXAMINATION: MM SCREENING DIGITAL BREAST TOMOSYNTHESIS, BILATERAL CLINICAL INFORMATION: Screening. Asymptomatic. COMPARISON: Mammography: This study is compared with prior exams dating back to 2019. TECHNIQUE: Digital breast tomosynthesis is performed in both the craniocaudal and mediolateral oblique views along with computer-aided detection (CAD). Synthesized 2D images are generated from the tomosynthesis. FINDINGS: There are scattered areas of fibroglandular density (ACR BI-RADS breast composition Category b). There are no significant masses, abnormal calcifications, or other abnormalities. Bilateral benign calcifications are present. MM/MM tomosynthesis screening BI IMPRESSION: No mammographic evidence of malignancy. ASSESSMENT: BI-RADS BI-RADS 2 - Benign Findings RECOMMENDATION: Routine annual mammography screening. 1 year F/U This examination should not preclude the clinical evaluation of a suspicious palpable abnormality. This patient's information was entered into a reminder system with a target due date for their next mammogram.
== END 2023-08-21 11:37 | disposition home or self-care (01) ==
LOC: HO.MAMMO 11:36
PROVIDERS: PCP Physician Assistant; Visit Provider Physician Assistant
DX: Z12.31 Encounter for screening mammogram for malignant neoplasm of breast (principal)
CPT/HCPCS: 77063; 77067

== ENCOUNTER → 2023-08-21 11:45 | Outpatient (BNV) | payer MEDICARE, OTHER, SELFPAY | PROVIDERS: PCP Physician Assistant; Visit Provider Radiology Diagnostic Radiology | DX: Z12.31 Encounter for screening mammogram for malignant neoplasm of breast (principal) | CPT/HCPCS: 77063; 77067 ==

== ENCOUNTER 2023-12-03 10:34 | Outpatient (AMB) | payer MEDICARE, OTHER, SELFPAY ==
[2023-12-03 10:48] VITALS: BP 120/68; PULSE 84; O2SAT 98; BMI 33.6
--- NOTE | 2023-12-03 10:48 | A.OFFVIS_ITS ---
Intake Vital Signs 12/03/23 10:48 Height 4 ft 10 in Weight 161 lb BMI 33.6 BP 120/68 Blood Pressure Location Lt brachial Position Sitting Pulse 84 Pulse Source Pulse Oximeter Pulse Oximetry (%) 98 Oxygen Delivery Method Room Air Intake Visit Reasons: AWV Allergies Seasonal Allergies Allergy (Verified 12/03/23 10:49) Sneezing Medication List - Last Reconciled 12/03/23 by Don Aguilar PA-C alendronate 70 mg PO QWEEK 12 weeks calcium carbonate (Oyster Shell Calcium) 500 mg PO BID 90 days cholecalciferol (vitamin D3) 50 mcg PO DAILY 90 days hydrochlorothiazide 25 mg PO DAILY 90 days lisinopril 5 mg PO DAILY 90 days omeprazole 40 mg PO DAILY 90 days HPI AWV HPI Details Patient is a 78-year-old female here today for annual wellness visit. Patient has a past medical history significant for hypertension, osteoporosis, GERD. Today we discussed patient's [place] of care and her end of life planning. We also did discuss her comprehensive care plan that was scanned into patient's file .. .. Osteoporosis: Patient continues on the alendronate. DEXA in 2020 showing T- score of-2.9. Dexa in 2022 showing T-score -2.5 Vaccines: Up-to-date with flu, COVID, pneumonia and tetanus vaccines. Colorectal cancer screening-followed by gastroenterology and has upcoming colonoscopy scheduled. Mammogram: Up-to-date Laboratory Tests 09/28/22 06/09/23 07:57 08:29 RBC 5.04 Creatinine 0.69 Fasting Glucose 109 H Cholesterol 198 LDL Cholesterol, C alc 103 H HPI Comments History of Present Illness Details reviewed past medical history- yes reviewed surgical / hospitalization history- yes reviewed current medications- yes reviewed family history- yes home safety throw rugs? grab bars? raised toilet seat? working smoke detectors? activities of daily living difficulty bathing or showering? difficulty dressing? difficulty using the toilet? difficulty getting in and out of bed? difficulty walking? receives help from other person's with any of the above tasks? instrumental activities of daily living uses telephone - gets to place out of walking distance- go shopping for groceries- repairs own meals- does own minor home maintenance- does own laundry- does own housework- manages own money- currently takes medication- end of life planning discussed advanced directives- yes advanced directives on file? discussed wishes expressed in advanced directives. fall risk have you had any falls with injuries in the past year? have you had 2 or more falls in the past year? fall risk assessment: [facility] Medical History Post-menopausal Surgical History History of colonoscopy History of excision of lesion History of total abdominal hysterectomy and bilateral salpingo-oophorectomy Family History Father CAD (coronary artery disease) Myocardial infarction Mother CAD (coronary artery disease) Myocardial infarction Social History Housing: House Alcohol intake: never Patient Tobacco Use Status: Former Tobacco user e-Cigarette/Vaping Use: Never Used Second Hand Smoke Exposure: No service: No Current occupational status: employed and retired Cognitive needs: No Hearing needs: No Vision needs: Yes (glasses) Questionnaire Medicare Wellness Checkup What [age] What gender do you identify with?: female During the past 4 weeks, how much have you been bothered by emotional problems such as feeling anxious, depressed, irritable, sad or downhearted, and blue?: not at all During the past 4 weeks, has your physical & emotional health limited your so cial activities with family, friends, neighbors, or groups?: not at all During the past 4 weeks, how much bodily pain have you generally had?: no pain During the past 4 weeks, was someone available to help you if you needed & wanted help?: yes, as much as I wanted During the past 4 weeks, what was the hardest physical activity you could do for at least 2 minutes?: moderate Can you get to places out of walking distance without help? (For eg., can you travel alone on buses, taxis or drive your car?): Yes Can you go shopping for groceries or clothes without someone's help?: Yes Can you prepare your own meals?: Yes Can you do your housework without help?: Yes Because of any health problems, do you need the help of another person with your personal care needs such as eating, bathing, dressing or getting around the house?: No Can you handle your own money without help?: Yes During the past 4 weeks, how would you rate your health in general?: excellent During the past 4 weeks how have things been going for you?: very well; could hardly better Are you having difficulties driving your car?: no Do you always fasten your seat belt when you are in a car?: yes, usually During past 4 weeks, have you been bothered by the following: never: Falling or dizzy when standing up, Sexual problems?, Trouble eating well?, Teeth or denture problems?, Problems using the telephone? and Tiredness or fatigue? Have you fallen 2 or more times in the past year?: No Are you afraid of falling?: No Are you a smoker?: no During the past 4 weeks, how many drinks of wine, beer, or other alcoholic beverages did you have?: no alcohol at all Do you exercise for about 20 minutes 3 or more times a week?: yes, most of the time Have you been given information to help with the following?: no: Hazards in your house that might hurt you? and no: Keeping track of your medications? How often do you have trouble taking medicines the way you have been told to take them?: I always take medicine as prescribed How confident are you that you can control & manage most of your health problems?: very confident What is your race?: White Mini Mental State Exam (MMSE) Orientation What is the (year) (season) (date) (day) (month)?: year Where are we (state) (county) (town or city) (hospital) (floor)?: town or city Attention & Calculation (CHOOSE ONE) Spell WORLD backwards (DLROW): 5 letters Score Score: 7 Activity of Daily Living Bathing - sponge bath, tub bath or shower: receives no assistance (gets in/out by self, if usual bathing means Dressing - getting clothes from closets & drawers, including inner/outer garments & fasteners.: gets clothes & gets completely dressed without help Toileting - going to the 'toilet room' for urine/bowel elimination & cleaning self/arranging clothes: goes to toilet room, cleans self, arranges clothes without help Transfer: moves in & out of bed and chair without help (may use support object) Continence: controls urination/bowel movements completely by self Feeding: feeds self without help Total Score: 0 Information obtained from: patient Using telephone: independent Traveling: independent Shopping: independent Preparing meals: independent Housework: independent Taking medicine: independent Managing money: independent PHQ-9 Over the last 2 weeks, how often have you been bothered by any of the following problems? 1. Little interest or pleasure in doing things: not at all 2. Feeling down, depressed, or hopeless: not at all 3. Trouble falling or staying asleep, or sleeping too much: not at all 4. Feeling tired or having little energy: not at all 5. Poor appetite or overeating: not at all 6. Feeling bad about yourself - or that you are a failure or have let yourself or your family down: not at all 7. Trouble concentrating on things, such as reading the newspaper or watching television: not at all 8. Moving or speaking so slowly that other people could have noticed. Or the opposite - being so fidgety or restless that you have been moving around a lot more than usual: not at all 9. Thoughts that you would be better off or of hurting yourself in some way: not at all Total score: 0 Depression Screening Interpretation: Negative Depression Screening Done: Yes 24410 - PHQ-9 Billing: Yes Source: Developed by Drs. Jose Orourke, Sheri Carbajal, Romeo Godinez and colleagues, with an educational candace from [email or web address]. Physical Exam Vital Signs: Last Vital Signs Pulse 84 12/03/23 10:48 BP 120/68 12/03/23 10:48 Pulse Ox 98 12/03/23 10:48 Oxygen Delivery Method Room Air 12/03/23 10:48 BMI result Body Mass Index 33.6 HEENT Other: hearing screening whisper test- pass Eyes Other: vision screening- 20 20 OS OD OU Other: urinary incontinence? no Neuro Other: balance Romberg- normal tandem walk test- able walk-in turned test- able rise from sit to stand- within 2 seconds Office Procedures Flu Questionnaire Does the patient have a severe egg allergy?: No Immunizations Fluarix Triv [id number] (PF) 45 mcg (15 mcg x 3)/0.5 mL IM syringe Performing Provider: Don Aguilar PA-C [facility] [place] [facility] Documented (not given) by: WILMAN Bryant on 12/03/23 10:48 Reason Not Given: Patient Refused Assessment & Plan Assessment & Plan (1) Medicare annual wellness visit, subsequent: Code(s): Z00.00 - Encounter for general adult medical examination without abnormal findings Plan: As per HPI Orders: Orders Influenza [id number] Immunization 12/03/23 Z23 - Encounter for immunization Quality Reporting (2019) Depression/Bipolar (159/160/161/177) PHQ-9: Total score: 0 Coding Level of Care Code Medicare Subsequent (G0439) Diagnoses Medicare annual wellness visit, subsequent Z00.00 CPT Codes Advance Care Planning - Time spent: 1-15 minutes, not on file ([id number]) Advance Care Planning Advance Care Planning discussion: Exists, not on file Date of discussion: 12/03/23 Forms completed: [facility] Time spent: 1-15 minutes, not on file Actual minutes spent: 4
== END 2023-12-03 11:06 | disposition home or self-care (01) ==
PROVIDERS: PCP Physician Assistant; Visit Provider Physician Assistant
DX: Z00.00 Encounter for general adult medical examination without abnormal findings (principal)

== ENCOUNTER → 2023-12-03 10:34 | Outpatient (BNVA) | payer MEDICARE, OTHER, SELFPAY | PROVIDERS: PCP Physician Assistant; Visit Provider Physician Assistant | DX: Z00.00 Encounter for general adult medical examination without abnormal findings (principal) | CPT/HCPCS: 90471; 96127 ==

== ENCOUNTER 2024-01-14 11:35 | Day surgery (SDC) | payer MEDICARE, OTHER, SELFPAY ==
[2024-01-10 15:06] VITALS: BMI 33.1
--- NOTE | 2024-01-11 10:24 | HO.ANESPROP2 ---
Documented by User: Roselyn Payne NP 01/11/24 10:24 HPI - Anesthesia Eval Consult details Narrative: 78yo M for Colonoscopy PMFSH Active Problems Active Problems: All Active Problems Medicare annual wellness visit, subsequent (Acute) Colon cancer screening (Acute) Obese (Acute) Osteoporosis (Acute) Adult general medical exam (Acute) Impaired glucose metabolism (Acute) HTN (hypertension) (Acute) GERD (gastroesophageal reflux disease) (Acute) Post-menopausal (Acute) Past Medical History Medical History Osteoporosis HTN (hypertension) GERD (gastroesophageal reflux disease) Post-menopausal Family History Family History Father CAD (coronary artery disease) Myocardial infarction Mother CAD (coronary artery disease) Myocardial infarction Surgical History Surgical History Hx of appendectomy History of esophagogastroduodenoscopy (EGD) History of colonoscopy History of excision of lesion History of total abdominal hysterectomy and bilateral salpingo-oophorectomy Social History Social History Housing: House Alcohol intake: never Patient Tobacco Use Status: Former Tobacco user e-Cigarette/Vaping Use: Never Used Second Hand Smoke Exposure: No Use of substances other than those prescribed or required for medical reasons: No Are you DNR?: No Advance Directives: No Advance Directives Information Provided: Yes Recently lost weight without trying: No service: No Current occupational status: employed and retired Cognitive needs: No Hearing needs: No Vision needs: Yes (glasses) Meds Allergies Allergy/AdvReac Type Severity Reaction Status Date / Time Seasonal Allergies Allergy Sneezing Verified 01/14/24 11:42 Home Medications ?Medication ?Instructions ?Recorded ?Confirmed ?Last Taken ?Type Vitamin C PO DAILY 01/14/24 Unknown History Vitamin D3 PO DAILY 01/14/24 Unknown History calcium PO DAILY 01/14/24 Unknown History Exam Height,Weight and Vital Signs: Height 4 ft 10.5 in Weight 73.028 kg Assessment and Plan Assessment Anesthesia Assessment: Chart Reviewed Documented by User: Liseth Felipe MD 01/14/24 12:43 PMFSH Past Medical History Medical History Osteoporosis HTN (hypertension) GERD (gastroesophageal reflux disease) Post-menopausal Family History Family History Father CAD (coronary artery disease) Myocardial infarction Mother CAD (coronary artery disease) Myocardial infarction Family history of problems with anesthesia: No Surgical History Surgical History Hx of appendectomy History of esophagogastroduodenoscopy (EGD) History of colonoscopy History of excision of lesion History of total abdominal hysterectomy and bilateral salpingo-oophorectomy History of Problems with Anesthesia: No Social History Social History Housing: House Alcohol intake: never Patient Tobacco Use Status: Former Tobacco user e-Cigarette/Vaping Use: Never Used Second Hand Smoke Exposure: No Use of substances other than those prescribed or required for medical reasons: No Are you DNR?: No Advance Directives: No Advance Directives Information Provided: Yes Recently lost weight without trying: No service: No Current occupational status: employed and retired Cognitive needs: No Hearing needs: No Vision needs: Yes (glasses) Meds Allergies Allergy/AdvReac Type Severity Reaction Status Date / Time Seasonal Allergies Allergy Sneezing Verified 01/14/24 11:42 Home Medications ?Medication ?Instructions ?Recorded ?Confirmed ?Last Taken ?Type Vitamin C PO DAILY 01/14/24 Unknown History Vitamin D3 PO DAILY 01/14/24 Unknown History calcium PO DAILY 01/14/24 Unknown History Exam Airway Mallampati Class: II TM Dist: >3cm Neck ROM: Limited Heart: rrr Lungs: cta Assessment and Plan Assessment Anesthesia Assessment: Anesthesia Plan Discussed Final Anesthetic Review Family History of Problems with Anesthesia: No History of Problems with Anesthesia: No ASA Class: II Final Preanesthetic Review: No Changes in Pt Med Stat, Meds/Allgs Chart Reviewed, Consent Obtained/Reviewed and Anes Risks/Benef Reviewed Patient Risk: Low Procedure Risk: Low Anesthetic Plan Anesthetic Plan: MAC: Disposition: Standard PACU
[2024-01-14 11:50] VITALS: BMI 32.5
[2024-01-14 11:53] VITALS: BP 151/76; PULSE 94; RESP 16; TEMP 36.6; O2SAT 96
[2024-01-14] MEDS: Lactated Ringers 1,000 ML 100 ML IVCONT (11:59)
[2024-01-14 13:08] VITALS: BP 110/56; PULSE 70; RESP 14; TEMP 36.9; O2SAT 99
--- NOTE | 2024-01-14 13:12 | PM.OP ---
Brief Operative Note Date of Service: 01/14/24 Pre-op diagnosis: Screening Post-op diagnosis: other (Diverticulosis) Procedure: Colonoscopy to the cecum and TI Surgeon: Jose Casas MD Anesthesia: MAC Was an Microcomputer Support Specialist used for this Procedure?: No Estimated blood loss (mL): 0 Pathology: none sent Condition: stable Disposition: PACU
[2024-01-14 13:23] VITALS: BP 129/62; PULSE 77; RESP 14; TEMP 36.9; O2SAT 96
--- NOTE | 2024-01-14 13:42 | OP_ITS ---
DATE OF SERVICE: 01/14/2024 SURGEON: Jose Casas MD INDICATIONS: The patient presents for evaluation of colorectal cancer screening. Full consent has been obtained from her for this, including risks of bleeding and perforation. PREOPERATIVE DIAGNOSIS: Colorectal cancer screening. POSTOPERATIVE DIAGNOSIS: PROCEDURE PERFORMED: Colonoscopy to the cecum and terminal ileum. ESTIMATED BLOOD LOSS: COMPLICATIONS: ANESTHESIA: Monitored anesthesia care. ASSISTANTS: SPECIMENS: POSTOPERATIVE DIAGNOSES: Colorectal cancer screening, diverticulosis, and internal hemorrhoids. DESCRIPTION OF PROCEDURE: The patient was placed in the left lateral decubitus position. The digital rectal exam revealed no abnormalities. The Olympus video pediatric colonoscope was then entered into the rectum and advanced easily to the cecum. Once in the cecum, I did identify normal-appearing cecal pouch with appendiceal orifice and a normal-appearing ileocecal valve. The terminal ileum was cannulated and appeared normal. Scope withdrawn back in the colon. The entire cecum and ileocecal valve appeared normal. The scope was slowly withdrawn assessing all mucosal surfaces carefully. Preparation was excellent. I did not visualize any sign of polyps, colitis, nor angiodysplasias. There was a mild amount of sigmoid diverticulosis. Of note, there was also a single diverticulum noted in the cecum. In the rectum, scope was retroflexed, visualizing internal hemorrhoids, but no other pathology. The rectal mucosa appeared normal. The scope was straightened and withdrawn from the patient. She tolerated the procedure well and was returned to the recovery area in stable condition. IMPRESSION: 1. Diverticulosis. 2. Internal hemorrhoids. PLAN: Given today's negative exam and her age, I do not think she would need any further screening colonoscopies. She will, otherwise, see me on a p.r.n. basis. MD CHEYENNE Henry/CLIFFORD / [id number]
--- OUTSIDE RECORDS SUMMARY | 2024-01-16 15:17 | XMS_ITS | Patient Health Record ---
Author Organization [facility] Address [address] [place] [address] Care Team Providers Care Lifestyle Block Farmer Name Role Phone Don Aguilar Primary Care Provider Unavailab Jose Harris [phone] ALLERGIES No Known Allergies REASON FOR REFERRAL No Information MEDICATIONS Medication SIG (Take, Route, Frequency, Duration) Notes Start Date End Date Status hydroCHLOROthiazide 25 MG 1 tablet Orall y Once a day Active Lisinopril 5 MG 1 tablet Orally Once a day Active Liliana Allergy 180 MG 1 tablet Orally O nce a day Not-Taking Alendronate Sodium 70 MG Oral for 84 Active Omeprazole 40 MG 1 capsule Orally Onc e a day Active SOCIAL HISTORY Sex Assigned At : Social History Observation Description Sex Assigned At Unknown PROBLEMS Problem Type ICD Code Onset Dates Problem Status W/U Status Risk SNOMED Code Notes Problem Encounter for screening for malignant neoplasm of colon (Z12.11) Active confirmed Screening for malignant neoplasm of colon (393438231) Problem Encounter for other preprocedural examination (Z01.818) Active confirmed Pre-procedure evaluation check (368771149) VITAL SIGNS Blood pressure diastolic 00 mm Hg 10/09/2023 Height 4 ft 10.5 in in 10/09/2023 Blood pressure systolic 00 mm Hg 10/09/2023 Weight 161 lbs 10/09/2023 BMI 33.07 kg/m2 10/09/2023 Encounters Encounter Location Date Provider Diagnosis [facility] [place] Out[place] [address], [place] [phone] 01/14/2024 [facility] [address] [place] [address] 10/09/2023 Jose Casas Encounter for screening for malignant neoplasm of colon Z12.11 and Encounter for other preprocedural examination Z01.818 ASSESSMENTS Encounter Date Diagnosis Assessment Notes Treatment Notes Treatment Clinical Notes 10/09/2023 Encounter for screening for malignant neoplasm of colon (ICD-10 - Z12.11) Do not use the Hydrochlorothiazide the day before or on the day of the colonoscopy 10/09/2023 Encounter for other preprocedural examination (ICD-10 - Z01.818) PLAN OF TREATMENT Future Test Test Name Order Date COLONOSCOPY 08/20/2013 COLONOSCOPY 10/09/2023 Insurance Providers Payer Name Payer Address Payer Phone Subscriber Number Group Number Insured Name Patient Relationship to Insured Coverage Start Date Coverage End Date MEDICARE OF [place] [address] [place] [address] [id number] ANG PACK Self - patient is the insured [facility] [address] [address] [place] [address] [id number] ANG PACK Self - patient is the insured MEDICAL (GENERAL) HISTORY Medical History History ICD Code Screening Colonoscopy 06/15/2003--negati ve for polyps Denies TN,DM,CVA,Lung disease,renal dise ase HTN GERD-EGD [id number] HH-no eso phagitis nor Negron's Colonoscopy in 10/2013 with only a hyperp lastic polyp removed Osteoporosis Surgical History Surgery Date(Month/Year) ESME and appendix
--- OUTSIDE RECORDS SUMMARY | 2024-01-16 15:17 | XMS_ITS ---
Author Organization [facility] Address [address] [place] [address] Care Team Providers Care Web Operations Specialist Name Role Phone Don Aguilar Primary Care Provider Unavailab Jose Harris [phone] ALLERGIES No Known Allergies REASON FOR VISIT Patient presents today for a colon screening MEDICATIONS Medication SIG (Take, Route, Frequency, Duration) Notes Start Date End Date Status hydroCHLOROthiazide 25 MG 1 tablet Orall y Once a day Active Lisinopril 5 MG 1 tablet Orally Once a day Active Liliana Allergy 180 MG 1 tablet Orally O nce a day Not-Taking Omeprazole 40 MG 1 capsule Orally Onc e a day Active Alendronate Sodium 70 MG Oral for 84 Active PROBLEMS Problem Type ICD Code Onset Dates Problem Status W/U Status Risk SNOMED Code Notes Problem Encounter for screening for malignant neoplasm of colon (Z12.11) Active confirmed Screening for malignant neoplasm of colon (520871706) Problem Encounter for other preprocedural examination (Z01.818) Active confirmed Pre-procedure evaluation check (561004477) VITAL SIGNS BMI 33.07 kg/m2 10/09/2023 Blood pressure systolic 00 mm Hg 10/09/19 24 Blood pressure diastolic 00 mm Hg 024 Height 4 ft 10.5 in in 10/09/2023 Weight 161 lbs 10/09/2023 Encounters Encounter Location Date Provider Diagnosis [facility] [address] [place] [id number] 10/09/2023 Jose Casas Encounter for screen ing for malignant neoplasm of colon Z12.11 and Encounter for other preprocedural examination Z01.818 ASSESSMENTS Encounter Date Diagnosis Assessment Notes Treatment Notes Treatment Clinical Notes 10/09/2023 Encounter for screening for malignant neoplasm of colon (ICD-10 - Z12.11) Do not use the Hydrochlorothiazide the day before or on the day of the colonoscopy 10/09/2023 Encounter for other preprocedural examination (ICD-10 - Z01.818) PLAN OF TREATMENT Treatment Notes Assessment Notes Encounter for screening for malignant neoplasm of colon Do not use the Hydrochlorothiazide the d ay before or on the day of the colonoscopy Future Test Test Name Order Date COLONOSCOPY 10/09/2023 Next Appt Details Follow Up: prn, Reason: Progress Notes * Examination Category Sub-Category Detail Notes General Examination GENERAL APPEARANCE: pleasant , well nourished, well developed, in no acute distress HEAD: EYES: sclera non-icteric EARS: NOSE: THROAT: NECK/THYROID: no cervical lymphade nopathy, neck supple HEART: S1, S2 normal CHEST: LUNGS: clear to auscultatio n bilaterally ABDOMEN: normal bowel sounds, no guarding or rigidity, no guarding or rigidity, no masses palpable, soft, nontender, nondistended NEUROLOGIC: alert and oriented SKIN: nonjaundiced, no spi marbin angiomata EXTREMITIES: no edema PERIPHERAL PULSES: BACK: BREASTS: MUSCULOSKELETAL: MALE GENITOURINARY: LYMPH NODES: RECTAL EXAM: FEMALE GENITOURINARY: ORAL CAVITY: mucosa moist
--- OUTSIDE RECORDS SUMMARY | 2024-01-16 15:17 | XMS_ITS ---
Author Organization [facility] Address [address] [place] [address] Care Team Providers Care Polisher Eyeglass Frames Name Role Phone Don Aguilar Primary Care Provider Unavailab Jose Harris [phone] REASON FOR VISIT screening Encounters Encounter Location Date Provider Diagnosis [facility] [place] [address] [place], [place] [id number] 01/14/2024 Jose Casas PLAN OF TREATMENT No Information
== END 2024-01-14 13:45 | disposition home or self-care (01) ==
PROVIDERS: PCP Physician Assistant; Visit Provider Internal Medicine
PROC: 0DJD8ZZ Inspection of Lower Intestinal Tract, Via Natural or Artificial Opening Endoscopic (ICD-10-PCS; CPT 45378; principal; 2024-01-14 13:20)
DX: Z12.11 Encounter for screening for malignant neoplasm of colon (principal); K57.30 Diverticulosis of large intestine without perforation or abscess without bleeding; K64.8 Other hemorrhoids; K21.9 Gastro-esophageal reflux disease without esophagitis; I10 Essential (primary) hypertension; M81.0 Age-related osteoporosis without current pathological fracture; Z79.899 Other long term (current) drug therapy; Z98.890 Other specified postprocedural states; Z87.891 Personal history of nicotine dependence
CPT/HCPCS: G0121

== ENCOUNTER 2024-03-04 14:47 | Outpatient (AMB) | payer MEDICARE, OTHER, SELFPAY ==
[2024-03-04 14:55] VITALS: BP 148/68; PULSE 108; TEMP 36.4; O2SAT 96; BMI 32.4
--- NOTE | 2024-03-04 14:55 | A.OFFPC_ITS ---
Vital Signs 03/04/24 14:55 Height 4 ft 10 in Weight 155 lb 4 oz BMI 32.4 BP 148/68 H Blood Pressure Location Lt brachial Position Sitting Pulse 108 H Pulse Source Pulse Oximeter Temp 97.5 F Temp Source Oral Pulse Oximetry (%) 96 Oxygen Delivery Method Room Air Intake Visit Reasons: cough and wheezing Intake Note: The patient is here for an ongoing dry cough since Sunday, accompanied by wheezing and low back pain, possibly due to a pulled muscle. Special Services Coordinator Required: No Accompanied by: Self / Same As Patient Allergies Seasonal Allergies Allergy (Verified 03/05/24 16:52) Sneezing Medication List - Last Reconciled 03/04/24 by CONNER Damico alendronate 70 mg PO QWEEK 12 weeks [calcium PO DAILY] hydrochlorothiazide 25 mg PO DAILY 90 days lisinopril 5 mg PO DAILY 90 days omeprazole 40 mg PO DAILY 90 days [Vitamin C PO DAILY] [Vitamin D3 PO DAILY] Tobacco use date assessed: 03/04/24 Fall risk assessment: No Falls in past year Last assessed Fall Risk: 03/04/24 Dental Screening Dental Screen Date: 03/04/24 Did you have a dental visit in the last 12 months?: Yes Did you have a dental problem in the last 6 months where you did not have access to dental care?: No Was dental information given to patient?: Patient has dentist HPI cough and wheezing HPI Details The patient is a 78-year-old female with significant past medical history hypertension, GERD, obesity, osteoporosis She is a patient of FRANNIE Webber. She was last seen on 12/03/23 She is presenting today with a week-long history of cough She reports getting bronchitis around this time of year She reports that the cough is nonproductive, she denies sore throat She endorses some nasal and reports that her cough is worse at night Reports that she coughs so hard that she feels like she pulled a muscle in her back (right side abdomen to posterior-feeling like she pulled a muscle). Patient denies muscle aches, denies sick contacts tx: cough syrups, ibuprofen, tylenol, not helping the pain in the back reports that she cannot used any inhaler-reports trying multiple times, but she is unable to get the medicine down into her lungs reports that her symptoms about the same nothing changed since the first day denies any testing for COVID/RSV/flu Patient is not interested going to get his her respiratory panel done On exam: Diminished breath sounds in lower bases, left nostril with yellowish secretion, pharynx with yellowish cobblestoning in the upper lobes are clear [facility] Medical History Osteoporosis HTN (hypertension) GERD (gastroesophageal reflux disease) Post-menopausal Surgical History Hx of appendectomy History of esophagogastroduodenoscopy (EGD) History of colonoscopy History of excision of lesion History of total abdominal hysterectomy and bilateral salpingo-oophorectomy Family History Father CAD (coronary artery disease) Myocardial infarction Mother CAD (coronary artery disease) Myocardial infarction Social History Housing: House Alcohol intake: never Patient Tobacco Use Status: Former Tobacco user e-Cigarette/Vaping Use: Never Used Second Hand Smoke Exposure: No service: No Current occupational status: employed and retired Cognitive needs: No Hearing needs: No Vision needs: Yes (glasses) Questionnaire PHQ-9 Over the last 2 weeks, how often have you been bothered by any of the following problems? 1. Little interest or pleasure in doing things: not at all 2. Feeling down, depressed, or hopeless: not at all 3. Trouble falling or staying asleep, or sleeping too much: not at all 4. Feeling tired or having little energy: not at all 5. Poor appetite or overeating: not at all 6. Feeling bad about yourself - or that you are a failure or have let yourself or your family down: not at all 7. Trouble concentrating on things, such as reading the newspaper or watching television: not at all 8. Moving or speaking so slowly that other people could have noticed. Or the opposite - being so fidgety or restless that you have been moving around a lot more than usual: not at all 9. Thoughts that you would be better off or of hurting yourself in some way: not at all Total score: 0 Depression Screening Interpretation: Negative Depression Screening Done: Yes 31726 - PHQ-9 Billing: Yes Source: Developed by Drs. Jose Orourke, Sheri Carbajal, Romeo Godinez and colleagues, with an educational candace from [employer]. Thrive Questionnaire Date Thrive assessed: 03/04/24 I am a: Patient What is your living situation today?: I have a steady place to live Within the past 12 months, did the food you bought not last and you didn't have the money to get more?: Never true Within the past 12 months, did you worry whether your food would run out before you got money to buy more?: Never true Do you have trouble paying for medicines?: No Do you have trouble getting transportation to medical appointments?: No Do you have trouble paying your heating and electricity bill?: No Do you have trouble taking care of your child, family member or friend?: No Do you have trouble with day-to-day activities such as bathing, preparing meals, shopping, managing finances, etc.?: No Are you currently unemployed and looking for a job?: No Are you interested in more education?: No Please select the resources that you would like help with: None Currently or been in a relationship where the following occur: No concerns reported THRIVE Score: 0 AUDIT C Alcohol Use Questionnaire (AUDIT-C) 1. How often do you have a drink containing alcohol?: Never 3. How often do you have six or more drinks on one occasion?: Never Total Score: 0 Score Reviewed/Action Taken: No MANJU-7 AMB Questionnaire MANJU-7 Date MANJU - 7 assessed: 03/04/24 Feeling nervous, anxious, or on edge: 0 = Not at all Not being able to stop or control worryin = Not at all Worrying too much about different things: 0 = Not at all Trouble relaxin = Not at all Being so restless that it is hard to sit still: 0 = Not at all Becoming easily annoyed or irritable: 0 = Not at all Feeling afraid as if something awful might happen: 0 = Not at all Total MANJU-7 score (0-4 normal; 5-9 mild; 10-14 moderate; 15-21 severe): 0 Source: Developed by Sheri Hardwick B.W. Solomon, Romeo Godinez and colleagues, with an educational candace from [employer]. MANJU-7 Assessment Billing MANJU-7 Assessment Tool: MANJU-7 Assessment 10255 Review of Systems Const Details: Denies chills, Denies fatigue, Denies fever(s), Denies headache(s) and Denies weakness HEENT Denies change in vision, Denies dizziness, Denies headache(s), Denies hearing loss, + nasal congestion, Denies sinus pain, Denies sinus pressure and +mild sore throat Card Denies chest pain, Denies lightheadedness, Denies dyspnea and Denies other (palpitations) Resp + cough nonproductive, Denies dyspnea and Denies wheezing GI Denies abdominal pain, Denies melena, Denies hematochezia, Denies change in bowel habits, Denies dyspepsia and Denies nausea Denies hematuria and Denies dysuria Musc Denies abnormal gait, +lateral right side of abdomen and mid back pain, Denies arthralgias, Denies numbness and Denies tingling Skin/Breast Denies rash, Denies unusual bruising and Denies wounds Neuro Denies abnormal gait, Denies dizziness, Denies headache(s), Denies memory loss, Denies numbness, Denies Sensory deficit (Neuro), Denies tingling and Denies weakness Psych Denies anxiety, Denies depression and Denies memory loss Endo Denies cold intolerance, Denies fatigue, Denies heat intolerance, Denies polydipsia and Denies polyuria Carmelo/Lymph Denies easy bleeding and Denies easy bruising Aller/Immun Denies wheezing Physical exam (Primary Care) Vital Signs: Last Vital Signs Temp 97.5 F 03/04/24 14:55 Pulse 108 H 03/04/24 14:55 BP 148/68 H 03/04/24 14:55 Pulse Ox 96 03/04/24 14:55 Oxygen Delivery Method Room Air 03/04/24 14:55 BMI result Body Mass Index 32.4 Tobacco/Smoking Status: Tobacco use Status Tobacco use date assessed 03/04/24 03/04/24 15:02 Patient Tobacco Use Status Former Tobacco user 03/04/24 15:02 e-Cigarette/Vaping Use Never Used 03/04/24 15:02 PHQ-9: PHQ-9 Score PHQ-9: Total score 0 03/05/24 16:52 Depression Screening Interpretation: Negative Thrive Assessment: Date of Thrive Assessment Date Thrive assessed 03/04/24 03/04/24 15:02 Currently or been in a relationship where the following occur: No concerns reported Const Other: General: no acute distress, well developed, alert and awake Nutritional Appearance: well nourished Orientation/consciousness: patient oriented x3 HENMT Head: Yes normocephalic and Yes atraumatic Ears: hearing grossly normal bilaterally and TM's normal bilaterally General nose exam: bilateral nares erythematous with boggy turbinates, left nostril with yellowish exudate Mouth: posterior pharynx with yellowish cobbing stoning surrounded by erythema Teeth and gingiva: dentition normal Throat: Yes oropharynx normal Eyes Pupils: Equal, round and reactive pupils present and Pupil accommodation reflex normal EOM: EOMs intact bilaterally Neck Neck: Yes normal visual inspection, Yes no lymphadenopathy and Yes trachea midline Thyroid: Thyroid normal Lymphatic: no lymphadenopathy noted Resp Effort & Inspection: normal respiratory effort Auscultation: clear to auscultation bilaterally Cardio Rate: regular rate Rhythm: regular rhythm Heart sounds: S1 normal heart sound present, S2 normal heart sound present, no gallops, no murmurs and no rubs Bruits: no abdominal aortic bruits and no carotid bruits GI Palpation (GI): right, upper, lateral abdominal pain, abdomen soft and nontender to palpation, No hepatosplenomegaly present and No Rebound tenderness present Auscultation: normal bowel sounds General: Yes no CVA tenderness Back/Spine/Pelvis Back: no CVA tenderness Cervical Spine: cervical ROM normal and No Cervical spine tenderness Thoracic/Lumbar Spine: thoraco-lumbar ROM normal, No pain with thoraco-lumbar ROM, No thoracic spinal tenderness and No lumbar spinal tenderness Skin General: warm and dry. Normal skin color. Normal skin turgor Lesions: no lesions Nails: normal Neuro General: patient oriented x3, gait normal Cranial nerves: Yes Equal, round and reactive pupils present Cognition (Neuro): normal cognition Gait exam (Neuro): Normal gait present Extrem General: Yes normal to inspection, No edema and No calf tenderness Psych Appearance: grossly normal Affect: normal affect Attitude: cooperative Thought process: Normal thought process present Coding Level of Care Code Est Pt Level 3 (68013) Diagnoses Nasopharyngitis infective J00 Cough, unspecified type R05.9 Cough type: unspecified Pulled muscle T14.8XXA Additional Codes MANJU-7 Assessment Billing - MANJU-7 Assessment Tool: MANJU-7 Assessment 70005 ([id number]) PHQ-9 - 71587 - PHQ-9 Billing: Yes ([id number]) Time Spent (min) 29 Assessment & Plan Assessment & Plan (1) Nasopharyngitis infective: Code(s): J00 - Acute nasopharyngitis [common cold] Category: Medical Plan: Augmentin b.i.d. times 7 days ordered Increase fluids intake (2) Cough: Code(s): R05.9 - Cough, unspecified Category: Medical Qualifiers: Cough type: unspecified Qualified Code(s): R05.9 - Cough, unspecified Plan: Benzonatate 100 mg b.i.d. ordered Increase fluids intake (3) Pulled muscle: Code(s): T14.8XXA - Other injury of unspecified body region, initial encounter Category: Medical Plan: The patient complaint of pulling muscle on the right side of her abdomen while coughing. Reports that the pain radiates to her back Meloxicam 15 mg daily Lidocaine patches, 1 on the abdomen in 1 on the back area ordered Plan Follow up with PCP as scheduled in May 2024 Medications: New meloxicam 15 mg PO DAILY 30 tabs 0RF lidocaine 5% leave on most painful area for up to 12 hrs apply to affected areas 2 patches topical DAILY 30 ea 0RF benzonatate 100 mg PO BID PRN 60 caps 0RF cough amoxicillin-pot clavulanate 500-125 mg (Augmentin) 1 tab PO BID 7 days 14 tabs 0RF
--- OUTSIDE RECORDS SUMMARY | 2024-03-04 15:43 | XMS_ITS ---
Author Organization [facility] Address [address] [place] [address] Care Team Providers Care Wallpaper Embosser Helper Name Role Phone Don Aguilar Primary Care Provider Unavailab Jose Harris Unavailable [phone] REASON FOR VISIT screening PROBLEMS Problem Type ICD Code Onset Dates Problem Status W/U Status Risk SNOMED Code Notes Problem Diverticulosis of large intestine without perforation or abscess without bleeding (K57.30) Active confirmed Diverticul ar disease of colon (154561521) Encounters Encounter Location Date Provider Diagnosis [facility] [place] [facility] [address], [place] [id number] 01/14/2024 Jose Casas Colon cancer scree gregory Z12.11 ; Diverticulosis of large intestine without perforation or abscess without bleeding K57.30 and Other hemorrhoids K64.8 ASSESSMENTS Encounter Date Diagnosis Assessment Notes Treatment Notes Treatment Clinical Notes 01/14/2024 Colon cancer screening (ICD-10 - Z12.11) 01/14/2024 Diverticulosis of large intestine without perforation or abscess without bleeding (ICD-10 - K57.30) 01/14/2024 Other hemorrhoids (ICD-10 - K64.8) PLAN OF TREATMENT No Information
--- OUTSIDE RECORDS SUMMARY | 2024-03-04 15:43 | XMS_ITS ---
Author Organization [facility] Address [address] [place] [address] Care Team Providers Care Hip Hop Performers Name Role Phone Don Aguilar Primary Care Provider Unavailab Jose Harris [phone] ALLERGIES No Known Allergies REASON FOR VISIT [...] confirmed Screening for malignant neoplasm of colon (827189386) Problem Encounter for other preprocedural examination (Z01.818) Active confirmed Pre-procedure evaluation check (894567444) VITAL SIGNS BMI 33.07 kg/m2 10/09/2023 Blood pressure systolic 00 mm Hg 10/09/19 24 Blood pressure diastolic 00 mm Hg 024 Height 4 ft 10.5 in in 10/09/2023 Weight 161 lbs 10/09/2023 Encounters Encounter Location Date Provider Diagnosis [facility] [address] [place] [address] 10/09/2023 Jose Casas Encounter for screen ing [...]
--- OUTSIDE RECORDS SUMMARY | 2024-03-04 15:43 | XMS_ITS | Patient Health Record ---
Author Organization [facility] Address [address] [place] [address] Care Team Providers Care Commercial Account Officer Name Role Phone Don Aguilar Primary Care Provider UnavailJose You [phone] ALLERGIES No Known Allergies REASON FOR REFERRAL [...] confirmed Screening for malignant neoplasm of colon (768162304) Problem Encounter for other preprocedural examination (Z01.818) Active confirmed Pre-procedure evaluation check (306617967) Problem Diverticulosis of large intestine without perforation or abscess without bleeding (K57.30) Active confirmed Diverticul ar disease of colon (063865882) VITAL SIGNS Blood pressure diastolic 00 mm Hg 10/09/2023 Height 4 ft 10.5 in in 10/09/2023 Blood pressure systolic 00 mm Hg 10/09/2023 Weight 161 lbs 10/09/2023 BMI 33.07 kg/m2 10/09/2023 Encounters Encounter Location Date Provider Diagnosis [facility] [place] [address] [place] [phone] 01/14/2024 Jose Casas Colon cancer screeni ng Z12.11 ; Diverticulosis of large intestine without perforation or abscess without bleeding K57.30 and Other hemorrhoids K64.8 [facility] [address] [place] [address] 10/09/2023 Jose Casas Encounter for screen ing for malignant neoplasm of colon Z12.11 and Encounter for other preprocedural examination Z01.818 ASSESSMENTS Encounter Date Diagnosis Assessment Notes Treatment Notes Treatment Clinical Notes 01/14/2024 Colon cancer screening (ICD-10 - Z12.11) 01/14/2024 Diverticulosis of large intestine without perforation or abscess without bleeding (ICD-10 - K57.30) 10/09/2023 Encounter for screening for malignant neoplasm of colon (ICD-10 - Z12.11) Do not use the Hydrochlorothiazide the day before or on the day of the colonoscopy 10/09/2023 Encounter for other preprocedural examination (ICD-10 - Z01.818) 01/14/2024 Other hemorrhoids (ICD-10 - K64.8) PLAN OF TREATMENT Future Test Test Name Order Date COLONOSCOPY 08/20/2013 COLONOSCOPY 10/09/2023 Insurance Providers Payer Name Payer Address Payer Phone Subscriber Number Group Number Insured Name Patient Relationship to Insured Coverage Start Date Coverage End Date MEDICARE OF [place] [address] [place] [address] [id number] ANG PACK Self - patient is the insured [facility] [address] [address] [place] [address] [id number] ANG PACK Self - patient is the insured MEDICAL (GENERAL) HISTORY Medical History History ICD Code Screening Colonoscopy 06/15/2003--negati ve for polyps Denies ND,DM,CVA,Lung disease,renal dise ase HTN GERD-EGD [id number] HH-no eso phagitis nor Negron's Colonoscopy in 10/2013 with only a hyperp lastic polyp removed Osteoporosis Surgical History Surgery Date(Month/Year) ESME and appendix
== END 2024-03-04 15:28 | disposition home or self-care (01) ==
PROVIDERS: PCP Physician Assistant
DX: J00 Acute nasopharyngitis [common cold] (principal); R05.9 Cough, unspecified; T14.8XXA Other injury of unspecified body region, initial encounter

== ENCOUNTER → 2024-03-04 14:47 | Outpatient (BNVA) | payer MEDICARE, OTHER, SELFPAY | PROVIDERS: PCP Physician Assistant | DX: J00 Acute nasopharyngitis [common cold] (principal); R05.9 Cough, unspecified; T14.8XXA Other injury of unspecified body region, initial encounter | CPT/HCPCS: 96127; 99212 ==

== ENCOUNTER 2024-06-03 11:25 | Outpatient (AMB) | payer MEDICARE, OTHER, SELFPAY ==
--- NOTE | 2024-06-03 11:35 | A.OFFPC_ITS ---
Vital Signs 06/03/24 11:40 Height 4 ft 10 in Weight 157 lb BMI 32.8 BP 136/76 Blood Pressure Location Lt brachial Position Sitting Pulse 92 Pulse Source Pulse Oximeter Temp 97.1 F Temp Source Temporal Artery Scan Pulse Oximetry (%) 95 Oxygen Delivery Method Room Air Intake Visit Reasons: f/u HTN Specialty Foods Cook Required: No Accompanied by: Self / Same As Patient Allergies Seasonal Allergies Allergy (Verified 06/03/24 11:49) Sneezing Medication List - Last Reconciled 06/03/24 by Don Aguilar PA-C alendronate 70 mg PO QWEEK 12 weeks [calcium PO DAILY] hydrochlorothiazide 25 mg PO DAILY 90 days lidocaine 5% 2 patches topical DAILY lisinopril 5 mg PO DAILY 90 days omeprazole 40 mg PO DAILY 90 days [Vitamin C PO DAILY] [Vitamin D3 PO DAILY] Tobacco use date assessed: 03/04/24 Fall risk assessment: No Falls in past year Last assessed Fall Risk: 06/03/24 Dental Screening Dental Screen Date: 03/04/24 HPI f/u HTN HPI Details Patient is a 78-year-old female here today for follow-up visit. Patient has a past medical history significant for hypertension, osteoporosis, GERD. She continues to work 2 jobs .. HTN: Patient's blood pressure today in office acceptable. Continues on lisinopril 5 mg daily .. GERD: Has been stable with daily use of PPI therapy. .. Class 1 Obesity: BMI remains at 32.8. She does not do any formal exercise. Patient reports her diet has been poor. .. Osteoporosis: Patient continues on the alendronate. DEXA in 2020 showing T- score of-2.9. Dexa in 2022 showing T-score -2.5. [facility] Medical History GERD (gastroesophageal reflux disease) Osteoporosis HTN (hypertension) GERD (gastroesophageal reflux disease) Surgical History Hx of appendectomy History of esophagogastroduodenoscopy (EGD) History of colonoscopy History of excision of lesion History of total abdominal hysterectomy and bilateral salpingo-oophorectomy Family History Father CAD (coronary artery disease) Myocardial infarction Mother CAD (coronary artery disease) Myocardial infarction Social History Housing: House Alcohol intake: never Patient Tobacco Use Status: Former Tobacco user e-Cigarette/Vaping Use: Never Used Second Hand Smoke Exposure: No service: No Current occupational status: employed and retired Cognitive needs: No Hearing needs: No Vision needs: Yes (glasses) Questionnaire PHQ-9 Over the last 2 weeks, how often have you been bothered by any of the following problems? 1. Little interest or pleasure in doing things: not at all 2. Feeling down, depressed, or hopeless: not at all 3. Trouble falling or staying asleep, or sleeping too much: not at all 4. Feeling tired or having little energy: not at all 5. Poor appetite or overeating: not at all 6. Feeling bad about yourself - or that you are a failure or have let yourself or your family down: not at all 7. Trouble concentrating on things, such as reading the newspaper or watching television: not at all 8. Moving or speaking so slowly that other people could have noticed. Or the opposite - being so fidgety or restless that you have been moving around a lot more than usual: not at all 9. Thoughts that you would be better off or of hurting yourself in some way: not at all Total score: 0 Depression Screening Interpretation: Negative Depression Screening Done: Yes 79243 - PHQ-9 Billing: Yes Source: Developed by Drs. Jose Orourke, Sheri Carbajal, Romeo Godinez and colleagues, with an educational candace from [employer]. Thrive Questionnaire Date Thrive assessed: 06/03/24 I am a: Patient What is your living situation today?: I have a steady place to live Within the past 12 months, did the food you bought not last and you didn't have the money to get more?: Never true Within the past 12 months, did you worry whether your food would run out before you got money to buy more?: Never true Do you have trouble paying for medicines?: No Do you have trouble getting transportation to medical appointments?: No Do you have trouble paying your heating and electricity bill?: No Do you have trouble taking care of your child, family member or friend?: No Do you have trouble with day-to-day activities such as bathing, preparing meals, shopping, managing finances, etc.?: No Are you currently unemployed and looking for a job?: No Are you interested in more education?: No Please select the resources that you would like help with: None Currently or been in a relationship where the following occur: No concerns reported THRIVE Score: 0 AUDIT C Alcohol Use Questionnaire (AUDIT-C) 1. How often do you have a drink containing alcohol?: Never 3. How often do you have six or more drinks on one occasion?: Never Total Score: 0 MANJU-7 AMB Questionnaire MANJU-7 Date MANJU - 7 assessed: 06/03/24 Feeling nervous, anxious, or on edge: 0 = Not at all Not being able to stop or control worryin = Not at all Worrying too much about different things: 0 = Not at all Trouble relaxin = Not at all Being so restless that it is hard to sit still: 0 = Not at all Becoming easily annoyed or irritable: 0 = Not at all Feeling afraid as if something awful might happen: 0 = Not at all Total MANJU-7 score (0-4 normal; 5-9 mild; 10-14 moderate; 15-21 severe): 0 Source: Developed by Drs. Jose Orourke, Sheri Carbajal, Romeo Godinez and colleagues, with an educational candace from [employer]. MANJU-7 Assessment Billing MANJU-7 Assessment Tool: MANJU-7 Assessment 39099 Review of Systems Const Denies headache(s) Eyes Denies loss of vision ENT Denies vertigo, Denies dizziness, Denies headache(s) and Denies sore throat Card Denies chest pain, Denies leg edema and Denies lightheadedness Resp Denies cough, Denies hemoptysis and Denies wheezing GI Denies abdominal pain, Denies melena, Denies constipation, Denies diarrhea and Denies vomiting Denies urinary frequency, Denies dysuria and Denies urinary urgency Musc Denies arthralgias, Denies joint swelling, Denies numbness and Denies tingling Neuro Denies Abnormal speech present, Denies behavioral changes, Denies vertigo, Denies dizziness, Denies headache(s), Denies loss of vision, Denies memory loss, Denies numbness and Denies tingling Psych Denies anxiety, Denies behavioral changes, Denies depression, Denies memory loss and Denies panic attacks Carmelo/Lymph Denies easy bleeding and Denies easy bruising Aller/Immun Denies wheezing Physical exam (Primary Care) Vital Signs: Last Vital Signs Temp 97.1 F 06/03/24 11:40 Pulse 92 06/03/24 11:40 BP 136/76 06/03/24 11:40 Pulse Ox 95 06/03/24 11:40 Oxygen Delivery Method Room Air 06/03/24 11:40 BMI result Body Mass Index 32.8 BMI Assessment/Plan discussion: High BMI High, discussed plan: lifestyle, weight reduction, dietary and physical activity Tobacco/Smoking Status: Tobacco use Status Tobacco use date assessed 03/04/24 06/03/24 11:35 Patient Tobacco Use Status Former Tobacco user 06/03/24 11:35 e-Cigarette/Vaping Use Never Used 06/03/24 11:35 PHQ-9: PHQ-9 Score PHQ-9: Total score 0 06/03/24 11:35 Depression Screening Interpretation: Negative Thrive Assessment: Date of Thrive Assessment Date Thrive assessed 06/03/24 06/03/24 11:35 Currently or been in a relationship where the following occur: No concerns reported Const General: healthy appearing, no acute distress, alert and awake Nutritional Appearance: well nourished Orientation/consciousness: oriented to person, oriented to place and oriented to time HENMT Ears: TM's normal bilaterally General nose exam: Normal nasal mucous membranes and turbinates present Eyes Conjunctivae: conjunctivae normal Sclerae: sclerae normal Pupils: Equal, round and reactive pupils present Neck Neck: Yes no lymphadenopathy and Yes no JVD Thyroid: Thyroid normal Carotids: no bruits Resp Effort & Inspection: normal respiratory effort and not tachypneic Auscultation: no crackles, no rales, no rhonchi and no wheezes Cardio Rate: regular rate Rhythm: regular rhythm Heart sounds: no murmurs and normal S1 and S2 GI Palpation (GI): Soft to palpation, nontender, no hepatomegaly and no splenomegaly Auscultation: normal bowel sounds Skin General skin exam: no rashes or lesions noted and dry skin Neuro General: oriented to person, oriented to place and oriented to time Cranial nerves: Yes Equal, round and reactive pupils present Speech: No Abnormal speech present Gait exam (Neuro): Normal gait present Motor exam (neuro): no tremor noted Extrem Right upper extremity: full ROM Left upper extremity: full ROM Right lower extremity: full ROM; no edema Left lower extremity: full ROM; no edema Psych Mental Status: mental status grossly normal Speech and movement: Normal speech and movement present Affect: normal affect Attitude: cooperative Thought process: Normal thought process present Coding Level of Care Code Est Pt Level 4 (17336) Diagnoses Primary hypertension I10 Hypertension type: primary hypertension Age related osteoporosis, unspecified pathological fracture presence M81.0 Osteoporosis type: age-related Presence of current pathological fracture: unspecified Class 1 obesity E66.811 Additional Codes MANJU-7 Assessment Billing - MANJU-7 Assessment Tool: MANJU-7 Assessment 74050 ([id number]) PHQ-9 - 33736 - PHQ-9 Billing: Yes ([id number]) Assessment & Plan Assessment & Plan (1) HTN (hypertension): Code(s): I10 - Essential (primary) hypertension Category: Medical Qualifiers: Hypertension type: primary hypertension Qualified Code(s): I10 - Essential (primary) hypertension Plan: Patient's blood pressure acceptable today in office. Will continue his current dose of lisinopril 5 mg with goal blood pressure to remain below 140/90 (2) Osteoporosis: Code(s): M81.0 - Age-related osteoporosis without current pathological fracture Category: Medical Qualifiers: Osteoporosis type: age-related Presence of current pathological fracture: unspecified Qualified Code(s): M81.0 - Age-related osteoporosis without current pathological fracture Plan: Patient continues on weekly Fosamax. Will recheck her bone density in the fall of 2024 to evaluate for improved bone mineral density (3) Class 1 obesity: Code(s): E66.811 - Obesity, class 1 Category: Medical Plan: Patient does understand her BMI is over 30 will work on being more physically active and adapting to better eating habits to reduce her weight Orders: Orders Hemoglobin A1c Today R73.09 - Other abnormal glucose Comprehensive [place]. Panel Fast Today R73.09 - Other abnormal glucose Complete Blood Count no Diff Today R73.09 - Other abnormal glucose Microalbumin, Random (w Creat) Today I10 - Essential (primary) hypertension
[2024-06-03 11:40] VITALS: BP 136/76; PULSE 92; TEMP 36.2; O2SAT 95; BMI 32.8
== END 2024-06-03 12:00 | disposition home or self-care (01) ==
LOC: HO.HMCH 11:25
PROVIDERS: PCP Physician Assistant; Visit Provider Physician Assistant
DX: I10 Essential (primary) hypertension (principal); M81.0 Age-related osteoporosis without current pathological fracture; E66.811 Obesity, class 1; Z68.32 Body mass index [BMI] 32.0-32.9, adult

== ENCOUNTER → 2024-06-03 11:25 | Outpatient (BNVA) | payer MEDICARE, OTHER, SELFPAY | PROVIDERS: PCP Physician Assistant; Visit Provider Physician Assistant | DX: I10 Essential (primary) hypertension (principal); M81.0 Age-related osteoporosis without current pathological fracture | CPT/HCPCS: 96127; 99212 ==

== ENCOUNTER 2024-07-22 08:29 | Outpatient (REF) | payer MEDICARE, OTHER, SELFPAY ==
--- OUTSIDE RECORDS SUMMARY | 2024-07-22 08:45 | XMS_ITS ---
Author Organization [facility] Address [address] [place] [address] Care Team Providers Care Bench Repair Technician Name Role Phone Jeff Don Primary Care Provider Unavailab Jose Harris [phone] Allergies No Known Allergies REASON FOR VISIT Patient presents today for a colon screening Medications Medication SIG (Take, Route, Frequency, Duration) Notes Start Date End Date Status hydroCHLOROthiazide 25 MG 1 tablet Orall y Once a day Active Lisinopril 5 MG 1 tablet Orally Once a day Active Liliaan Allergy 180 MG 1 tablet Orally O nce a day Not-Taking Omeprazole 40 MG 1 capsule Orally Onc e a day Active Alendronate Sodium 70 MG Oral for 84 Active Problems Problem Type SNOMED Code ICD Code Onset Dates Problem Status W/U Status Risk Notes Problem Encounter for screening for malignant neoplasm of colon (Z12.11) Active confirmed Problem Pre-procedure evaluation check ([id number]) Encounter for other preprocedural examination (Z01.818) Active confirmed Vital Signs Blood pressure systolic 00 mm Hg 10/09/19 24 Blood pressure diastolic 00 mm Hg 024 Height 4 ft 10.5 in in 10/09/2023 Weight 161 lbs 10/09/2023 BMI 33.07 kg/m2 10/09/2023 Encounters Encounter Location Date Provider Diagnosis [facility] [address] [place] [address] 10/09/2023 Jose Casas Encounter for screen ing for malignant neoplasm of colon Z12.11 and Encounter for other preprocedural examination Z01.818 Assessments Encounter Date Diagnosis (ICD Code) Assessment Notes Treatment Notes Treatment Clinical Notes Section Notes 10/09/2023 Encounter for screening for malignant neoplasm of colon (ICD-10 - Z12.11) Do not use the Hydrochlorothiazide the day before or on the day of the colonoscopy Overall, Qiana appears quite well. Given her age, good clinical appearance, and negative colonoscopy 10 years ago, I did recommend a followup colonoscopy for screening purposes. We did review the rationale for that regard to colon cancer prevention. Full consent was obtained for this, including risks of bleeding and perforation. The procedure will be done monitored anesthesia care. She was given the below instructions regarding adjustment of her medication for the procedure. Qiana was comfortable with this plan. Thank you again for allowing me to participate in Qiana's care. I shall continue to keep you advised of her progress. 10/09/2023 Encounter for other preprocedural examination (ICD-10 - Z01.818) Overall, Qiana appears quite well. Given her age, good clinical appearance, and negative colonoscopy 10 years ago, I did recommend a followup colonoscopy for screening purposes. We did review the rationale for that regard to colon cancer prevention. Full consent was obtained for this, including risks of bleeding and perforation. The procedure will be done monitored anesthesia care. She was given the below instructions regarding adjustment of her medication for the procedure. Qiana was comfortable with this plan. Thank you again for allowing me to participate in Qiana's care. I shall continue to keep you advised of her progress. Plan Of Treatment Treatment Notes Assessment Notes Encounter for screening for malignant neoplasm of colon Do not use the Hydrochlorothiazide the d ay before or on the day of the colonoscopy Future Test Test Name Order Date COLONOSCOPY 10/09/2023 Next Appt Details Follow Up: prn, Reason: Progress Notes * QIANA PACK MDOB: [birth year] (78 yo F)Acc No.[id number]:10/09/2023 Progress Notes Patient:?QIANA PACK Provider:?Jose Casas MD :1945???Age:78 Y???Sex:Female D ate:10/09/2023 Address:[address] [place], [place] [id number] Pcp:Don Aguilar Subjective: * Chief Complaints: * ???Patient presents today fo r a colon screening * HPI: ???incontinence:? I saw Qiana in the office today for evaluation of colorectal cancer screening. ?I last saw Qiana in October 2013, for which she underwent a negative followup screening colonoscopy. She presently feels well. She enjoys a good appetite, without any significant heartburn or dysphagia. Her bowel movements have been regular, without any hematochezia nor melena. She denies abdominal pain, jaundice, nor unintentional weight loss. She denies any known family history of colorectal cancer. * ROS:?General/Constitutional:?Change in appetite?denies.?Chills?denies.?Fatigue?denies.?Ophthalmologic:?Comments?all negative.?ENT:?Comments?all negative.?Respiratory:?hemoptysis?denies.?Cough?denies.?Cardiovascular:?Chest pain?denies.?Orthopnea?denies.?Gastrointestinal:?Comments?See HPI for details.?Genitourinary:?Hematuria?denies.?Dysuria?denies.?Musculoskeletal:?Painful joints?denies.?Weakness?denies.?Skin:?Itching?denies.?Rash?denies.?Neurologic:?Headache?denies.?Seizures?denies.?Psychiatric:?Comments?all negative.? * Medical History:? * Surgical History:?ESME and ap pendix * Hospitalization/Major Diagno stic Procedure:?No Hospitalization History. * Family History:?Father: dece ased.?Mother: .?Maternal Grand Mother: .? No colorectal cancer Sister with breast cancer brother kidney cancer . * Social History:?Tobacco Use:?Tobacco Use/Smoking?Are you a: nonsmoker.?Drugs/Alcohol:?Alcohol Screen?Points: 0, Interpretation: Negative.?Miscellaneous:?Marital status: . Occupation: retired. ???Nonsmoker; no sig alcohol. * Medications:?TakingLisinopri l 5 MG Tablet 1 tablet Orally Once a dayhydroCHLOROthiazide 25 MG Tablet 1 tablet Orally Once a dayOmeprazole 40 MG Capsule Delayed Release 1 capsule Orally Once a dayAlendronate Sodium 70 MG Tablet Oral Taking Lisinopril 5 MG Tablet 1 tablet Orally Once a dayTaking hydroCHLOROthiazide 25 MG Tablet 1 tablet Orally Once a dayTaking Omeprazole 40 MG Capsule Delayed Release 1 capsule Orally Once a dayTaking Alendronate Sodium 70 MG Tablet Oral Not-Taking/PRNAllegra Allergy 180 MG Tablet 1 tablet Orally Once a dayNot-Taking/PRN Liliana Allergy 180 MG Tablet 1 tablet Orally Once a dayDiscontinuedColyte w Flavor Packs 240 GM Solution Reconstituted as directed Orally as directedMedication List reviewed and reconciled with the patientDiscontinued Colyte w Flavor Packs 240 GM Solution Reconstituted as directed Orally as directedMedication List reviewed and reconciled with the patient * Allergies:?N.K.D.A.yes[Aller gies Verified] Objective: * Vitals:?Wt: 161 lbs, Ht: 4 f t 10.5 in, BMI:33.07 Index, BP: 00/00 mm Hg. * Examination: ???General Examination: ?GENERAL APPEARANCE:?pleasant, well nourished, well developed, in no acute distress.?EYES:?sclera non-icteric.?ORAL CAVITY:?mucosa moist.?NECK/THYROID:?no cervical lymphadenopathy, neck supple.?SKIN:?nonjaundiced, no spider angiomata.?HEART:?S1, S2 normal.?LUNGS:?clear to auscultation bilaterally.?ABDOMEN:?normal bowel sounds, no guarding or rigidity, no guarding or rigidity, no masses palpable, soft, nontender, nondistended.?EXTREMITIES:?no edema.?NEUROLOGIC:?alert and oriented.? Assessment: * Assessment: 1.?Encounter for screening f or malignant neoplasm of colon - Z12.11 (Primary)?2.?Encounter for other preprocedural examination - Z01.818? Overall, Qiana appears quit e well. Given her age, good clinical appearance, and negative colonoscopy 10 years ago, I did recommend a followup colonoscopy for screening purposes. We did review the rationale for that regard to colon cancer prevention. Full consent was obtained for this, including risks of bleeding and perforation. The procedure will be done monitored anesthesia care. She was given the below instructions regarding adjustment of her medication for the procedure. Qiana was comfortable with this plan. Thank you again for allowing me to participate in Qiana's care. I shall continue to keep you advised of her progress. Plan: * Treatment: Notes: Do not use the Hydrochlorothiazide the day before or on the day of the colonoscopy? * Procedure Codes:? * Preventive Medicine:? ??Urinary Incontinence:?Urinary Incontinence?Assessment:?Absent,?Plan of care documented:?No, reason not specified.? ??Screenings:?Fall Risk Screening?Fall Risk Assessment:?No falls in the past year,?Assessment:?Not performed, no reason specified.? * Follow Up:?prn * * Sign off status: Completed true * Provider:?Jose Casas MD Date:? 024 Generated for Gustavo dumont/Jazlyn/eTransmitting on:?07/22/2024 08:45 AM EDT History and Physical Notes * HPI (History of Present Illness) Category Sub-Category Detail Notes Category Not es incontinence I saw Qiana in the office today for evaluation of colorectal cancer screening. I last saw Qiana in October 2013, for which she underwent a negative followup screening colonoscopy. She presently feels well. She enjoys a good appetite, without any significant heartburn or dysphagia. Her bowel movements have been regular, without any hematochezia nor melena. She denies abdominal pain, jaundice, nor unintentional weight loss. She denies any known family history of colorectal cancer. Examination Category Sub-Category Detail Notes Category Not es General Examination GENERAL APPEARANCE: pleasant , well [...]
[2024-07-22 09:31] LABS: Hematocrit 39.9 % (37.0-47.0); Hemoglobin 13.4 g/dl (12.0-16.0); Mean Corpuscular HGB Conc 33.6 g/dl (31.0-35.0); Mean Corpuscular Volume 86.4 fL (80.0-98.0); Mean Platelet Volume 10.2 fL (9.4-12.3); Platelet Count 260 X10*3/uL (160-400); Red Blood Count 4.62 X10*6/uL (4.20-5.50); Red Cell Distribution Width 13.9 % (11.0-16.0); White Blood Count 6.3 X10*3/uL (4.8-10.8)
[2024-07-22 09:47] LABS: Estimated Average Glucose 123 mg/dL; Hemoglobin A1C 141.6498 umol/L; Hemoglobin A1c % 5.9 % (<6.0)
[2024-07-22 09:55] LABS: Alanine Aminotransferase 16 U/L (0-31); Albumin Level 4.3 g/dL (3.5-5.0); Alkaline Phosphatase 84 U/L (39-117); Anion Gap 11 (12-20); Aspartate Amino Transferase 20 U/L (5-31); Bilirubin Total 0.4 mg/dL (0.0-1.0); Blood Urea Nitrogen 18 mg/dL (9-16); Calcium 9.1 mg/dL (8.4-10.2); Carbon Dioxide 27 mmol/L (22-29); Chloride 107 mmol/L (96-108); Estimated Glomerular Filt Rate > 60; Glucose Fasting 106 mg/dL (60-99); Sodium 141 mmol/L (135-145); Total Protein 6.8 g/dL (6.5-8.0)
[2024-07-22 11:51] LABS: Creatinine Urine 72.37 mg/dL; Microalbum/Creatinine Ratio Ur 15.1 ug/mg cr (<30)
== END 2024-07-22 08:30 | disposition home or self-care (01) ==
LOC: HO.LAB 08:29
PROVIDERS: PCP Physician Assistant; Visit Provider Physician Assistant
DX: R73.09 Other abnormal glucose (principal); I10 Essential (primary) hypertension
CPT/HCPCS: 36415; 80053; 82043; 82570; 83036; 85027

== ENCOUNTER 2024-08-26 11:27 | Outpatient (REF) | payer MEDICARE, OTHER, SELFPAY ==
--- OUTSIDE RECORDS SUMMARY | 2024-01-14 09:20 | XMS_ITS ---
Author Organization [facility] Address [address] [place] [address] Care Team Providers Care Swimming Instructor Name Role Phone Don Aguilar Primary Care Provider Unavailab Jose Harris [phone] REASON FOR VISIT screening Problems Problem Type SNOMED Code ICD Code Onset Dates Problem Status W/U Status Risk Notes Problem Diverticulosis o f large intestine without perforation or abscess without bleeding (K57.30) Active confirmed Encounters Encounter Location Date Provider Diagnosis [facility] [place] [address], [place] [phone] 01/14/2024 Jose Casas Colon cancer scree gregory [...] Information Progress Notes * ANG PACK MDOB: 7 (79 yo F)Acc No.[id number]:01/14/2024 COLON WITH MAC Patient: Liz ANG SPENCER Provider: Kelly Casas MD :1945 A ge:78 Y S ex:Female Date:01/14/2024 Address:[address] [place] [address] [id number] Pcp:Don Aguilar Subjective: * Chief Complaints: * [...] Pending * Provider: Kelly Casas MD Date: 1 03/16/2023 Generated for Gustavo dumont/Jazlyn/Johnyitting on: 0 08/26/2024 12:45 PM EDT
== END 2024-08-26 11:28 | disposition home or self-care (01) ==
LOC: HO.MAMMO 11:27
PROVIDERS: PCP Physician Assistant; Visit Provider Physician Assistant
DX: Z12.31 Encounter for screening mammogram for malignant neoplasm of breast (principal)
CPT/HCPCS: 77063; 77067

== ENCOUNTER → 2024-08-26 11:45 | Outpatient (BNV) | payer MEDICARE, OTHER, SELFPAY | PROVIDERS: PCP Physician Assistant; Visit Provider Internal Medicine | DX: Z12.31 Encounter for screening mammogram for malignant neoplasm of breast (principal) | CPT/HCPCS: 77063; 77067 ==

== ENCOUNTER 2024-12-04 11:13 | Outpatient (AMB) | payer MEDICARE, OTHER, SELFPAY ==
--- OUTSIDE RECORDS SUMMARY | 2024-01-14 09:20 | XMS_ITS ---
Author Organization [facility] Address [address] [place] [address] Care Team Providers Care Figure Model Name Role Phone Don Aguilar Primary Care Provider Unavailab Jose Harris [phone] REASON FOR VISIT screening Problems Problem Type SNOMED Code ICD Code Onset Dates Problem Status W/U Status Risk Notes Problem Diverticular disease of colon (955680561) Diverticulosis of large intestine without perforation or abscess without bleeding (K57.30) Active confirmed Encounters Encounter Location Date Provider Diagnosis [facility] [place] Outpatient [address], [place] [phone] 01/14/2024 Jose Casas Colon cancer scree gregory Z12.11 ; Diverticulosis of large intestine without perforation or abscess without bleeding K57.30 and Other hemorrhoids K64.8 Assessments Encounter Date Diagnosis (ICD Code) Assessment Notes Treatment Notes Treatment Clinical Notes Section Notes 01/14/2024 Colon cancer screening (ICD-10 - Z12.11) 01/14/2024 Diverticulosis of large intestine without perforation or abscess without bleeding (ICD-10 - K57.30) 01/14/2024 Other hemorrhoids (ICD-10 - K64.8) Plan Of Treatment No Information Progress Notes * ANG PACK MDOB: (79 yo F)Acc No.[id number]:01/14/2024 COLON WITH MAC Patient: Liz ANG SPENCER Provider: Kelly Casas MD :1945 A ge:78 Y S ex:Female Date:01/14/2024 Address:[address] [place] [address] [id number] Pcp:Don Aguilar Subjective: * Chief Complaints: * 1 . Screening. * Medical History: Objective: * Vitals: Assessment: * Assessment: 1. C olon cancer screening - Z12.11 (Primary) 2 . D iverticulosis of large intestine without perforation or abscess without bleeding - K57.30 3 . O ther hemorrhoids - K64.8 Plan: * Treatment: * Procedure Codes: G 0121 COLOREC CNCR SCR;COLNSCPY NO HI RSK, 0529F INTRVL 3+YRS PTS CLNSCP DOCD, 0528F RCMND FLW-UP 10 YRS DOCD, Modifiers: 1P * * The named appointment provid er may or may not be the originator of this progress note, and it is not deemed complete until electronically signed by the appointment provider. Sign off status: Pending * Provider: Kelly Casas MD Date: 03/16/2023 Generated for Gustavo dumont/Jazlyn/Johnyitting on: 02:03 PM EDT
[2024-12-04 11:19] VITALS: BP 132/78; PULSE 91; O2SAT 95; BMI 33.9
--- NOTE | 2024-12-04 11:23 | A.OFFVIS_ITS ---
Intake Vital Signs 12/04/24 11:19 Height 4 ft 10 in Weight 162 lb 4 oz BMI 33.9 BP 132/78 Blood Pressure Location Lt brachial Position Sitting Pulse 91 Pulse Source Pulse Oximeter Pulse Oximetry (%) 95 Oxygen Delivery Method Room Air Intake Visit Reasons: AWV Staff Cytotechnologist Required: No Accompanied by: Self / Same As Patient Allergies Seasonal Allergies Allergy (Verified 12/04/24 11:35) Sneezing Medication List - Last Reconciled 12/04/24 by Don Aguilar PA-C alendronate 70 mg PO QWEEK 12 weeks [calcium PO DAILY] hydrochlorothiazide 25 mg PO DAILY 90 days lidocaine 5% 2 patches topical DAILY lisinopril 5 mg PO DAILY 90 days omeprazole 40 mg PO DAILY 90 days [Vitamin C PO DAILY] [Vitamin D3 PO DAILY] Do you need a note to return to daycare/school/sports/work: No HPI AWV HPI Details Patient is a 79-year-old female here today for annual wellness visit. Patient has a past medical history significant for hypertension, osteoporosis, GERD. Today we discussed patient's stebbins of care and her end of life planning. We also did discuss her comprehensive care plan that was scanned into patient's file Patient was given MOLST form today .. .. Osteoporosis: Patient continues on the alendronate. DEXA in 2020 showing T- score of-2.9. Dexa in 2022 showing T-score -2.5 Vaccines: Up-to-date with flu, COVID, pneumonia and tetanus vaccines. Colorectal cancer screening-followed by gastroenterology and has upcoming colonoscopy scheduled. Mammogram: Up-to-date with mammogram Laboratory Tests 09/28/22 06/09/23 07:57 08:29 RBC 5.04 Creatinine 0.69 Fasting Glucose 109 H Cholesterol 198 LDL Cholesterol, C alc 103 H HPI Comments History of Present Illness Details reviewed past medical history- yes reviewed surgical / hospitalization history- yes reviewed current medications- yes reviewed family history- yes home safety throw rugs? grab bars? raised toilet seat? working smoke detectors? activities of daily living difficulty bathing or showering? difficulty dressing? difficulty using the toilet? difficulty getting in and out of bed? difficulty walking? receives help from other person's with any of the above tasks? instrumental activities of daily living uses telephone - gets to place out of walking distance- go shopping for groceries- repairs own meals- does own minor home maintenance- does own laundry- does own housework- manages own money- currently takes medication- end of life planning discussed advanced directives- yes advanced directives on file? discussed wishes expressed in advanced directives. fall risk have you had any falls with injuries in the past year? have you had 2 or more falls in the past year? fall risk assessment: [facility] Medical History GERD (gastroesophageal reflux disease) Osteoporosis HTN (hypertension) GERD (gastroesophageal reflux disease) Surgical History Hx of appendectomy History of esophagogastroduodenoscopy (EGD) History of colonoscopy History of excision of lesion History of total abdominal hysterectomy and bilateral salpingo-oophorectomy Family History Father CAD (coronary artery disease) Myocardial infarction Mother CAD (coronary artery disease) Myocardial infarction Social History Housing: House Alcohol intake: never Patient Tobacco Use Status: Former Tobacco user e-Cigarette/Vaping Use: Never Used Second Hand Smoke Exposure: No service: No Current occupational status: employed and retired Cognitive needs: No Hearing needs: No Vision needs: Yes (glasses) Questionnaire Medicare Wellness Checkup [age] What gender do you identify with?: female During the past 4 weeks, how much have you been bothered by emotional problems such as feeling anxious, depressed, irritable, sad or downhearted, and blue?: not at all During the past 4 weeks, has your physical & emotional health limited your social activities with family, friends, neighbors, or groups?: not at all During the past 4 weeks, how much bodily pain have you generally had?: no pain During the past 4 weeks, was someone available to help you if you needed & wanted help?: yes, as much as I wanted During the past 4 weeks, what was the hardest physical activity you could do for at least 2 minutes?: very heavy Can you get to places out of walking distance without help? (For eg., can you travel alone on buses, taxis or drive your car?): Yes Can you go shopping for groceries or clothes without someone's help?: Yes Can you prepare your own meals?: Yes Can you do your housework without help?: Yes Because of any health problems, do you need the help of another person with your personal care needs such as eating, bathing, dressing or getting around the house?: No Can you handle your own money without help?: Yes During the past 4 weeks, how would you rate your health in general?: excellent During the past 4 weeks how have things been going for you?: very well; could hardly better Are you having difficulties driving your car?: no Do you always fasten your seat belt when you are in a car?: yes, usually During past 4 weeks, have you been bothered by the following: never: Falling or dizzy when standing up, Sexual problems?, Trouble eating well?, Teeth or denture problems?, Problems using the telephone? and Tiredness or fatigue? Have you fallen 2 or more times in the past year?: No Are you afraid of falling?: No Are you a smoker?: no During the past 4 weeks, how many drinks of wine, beer, or other alcoholic beverages did you have?: no alcohol at all Do you exercise for about 20 minutes 3 or more times a week?: yes, most of the time Have you been given information to help with the following?: no: Hazards in your house that might hurt you? and no: Keeping track of your medications? How often do you have trouble taking medicines the way you have been told to take them?: I always take medicine as prescribed How confident are you that you can control & manage most of your health problems?: very confident What is your race?: White Mini Mental State Exam (MMSE) Orientation What is the (year) (season) (date) (day) (month)?: year Where are we (state) (county) (town or city) (hospital) (floor)?: town or city Attention & Calculation (CHOOSE ONE) Spell WORLD backwards (DLROW): 5 letters Score Score: 7 Activity of Daily Living Bathing - sponge bath, tub bath or shower: receives no assistance (gets in/out by self, if usual bathing means Dressing - getting clothes from closets & drawers, including inner/outer garments & fasteners.: gets clothes & gets completely dressed without help Toileting - going to the 'toilet room' for urine/bowel elimination & cleaning self/arranging clothes: goes to toilet room, cleans self, arranges clothes without help Transfer: moves in & out of bed and chair without help (may use support object) Continence: controls urination/bowel movements completely by self Feeding: feeds self without help Total Score: 0 Information obtained from: patient Using telephone: independent Traveling: independent Shopping: independent Preparing meals: independent Housework: independent Taking medicine: independent Managing money: independent PHQ-9 Over the last 2 weeks, how often have you been bothered by any of the following problems? 1. Little interest or pleasure in doing things: not at all 2. Feeling down, depressed, or hopeless: not at all 3. Trouble falling or staying asleep, or sleeping too much: not at all 4. Feeling tired or having little energy: not at all 5. Poor appetite or overeating: not at all 6. Feeling bad about yourself - or that you are a failure or have let yourself or your family down: not at all 7. Trouble concentrating on things, such as reading the newspaper or watching television: not at all 8. Moving or speaking so slowly that other people could have noticed. Or the opposite - being so fidgety or restless that you have been moving around a lot more than usual: not at all 9. Thoughts that you would be better off or of hurting yourself in some way: not at all Total score: 0 Depression Screening Interpretation: Negative Depression Screening Done: Yes 19441 - PHQ-9 Billing: Yes Source: Developed by Drs. Jose Orourke, Sheri Carbajal, Romeo Godinez and colleagues, with an educational candace from [employer]. PHQ-2/PHQ-9 PHQ-2 Over the last 2 weeks, how often have you been bothered by any of the following problems? 1. Little interest or pleasure in doing things: not at all 2. Feeling down, depressed, or hopeless: not at all Total score: 0 If score is 3 or greater, continue 3. Trouble falling or staying asleep, or sleeping too much: not at all 4. Feeling tired or having little energy: not at all 5. Poor appetite or overeating: not at all 6. Feeling bad about yourself - or that you are a failure or have let yourself or your family down: not at all 7. Trouble concentrating on things, such as reading the newspaper or watching television: not at all 8. Moving or speaking so slowly that other people could have noticed. Or the opposite - being so fidgety or restless that you have been moving around a lot more than usual: not at all 9. Thoughts that you would be better off or of hurting yourself in some way: not at all Total score: 0 0-4 None-Minimal, 5-9 Mild, 10-14 Moderate, 15-19 Moderately Severe, 20-27 Severe Source: Developed by Drs. Jose Orourke, Sheri Carbajal, Romeo Godinez and colleagues, with an educational candace from [employer]. Thrive Questionnaire Date Thrive assessed: 12/04/24 I am a: Patient What is your living situation today?: I have a steady place to live Within the past 12 months, did the food you bought not last and you didn't have the money to get more?: Never true Within the past 12 months, did you worry whether your food would run out before you got money to buy more?: Never true Do you have trouble paying for medicines?: No Do you have trouble getting transportation to medical appointments?: No Do you have trouble paying your heating and electricity bill?: No Do you have trouble taking care of your child, family member or friend?: No Do you have trouble with day-to-day activities such as bathing, preparing meals, shopping, managing finances, etc.?: No Are you currently unemployed and looking for a job?: No Are you interested in more education?: No Please select the resources that you would like help with: None Currently or been in a relationship where the following occur: No concerns reported THRIVE Score: 0 MANJU-7 AMB Questionnaire MANJU-7 Date MANJU - 7 assessed: 12/04/24 Feeling nervous, anxious, or on edge: 0 = Not at all Not being able to stop or control worryin = Not at all Worrying too much about different things: 0 = Not at all Trouble relaxin = Not at all Being so restless that it is hard to sit still: 0 = Not at all Becoming easily annoyed or irritable: 0 = Not at all Feeling afraid as if something awful might happen: 0 = Not at all Total MANJU-7 score (0-4 normal; 5-9 mild; 10-14 moderate; 15-21 severe): 0 Source: Developed by Drs. Jose Orourke, Sheri Carbajal, Romeo Godinez and colleagues, with an educational candace from [employer]. MANJU-7 Assessment Billing MANJU-7 Assessment Tool: MANJU-7 Assessment 67238 Physical Exam Vital Signs: Last Vital Signs Pulse 91 12/04/24 11:19 BP 132/78 12/04/24 11:19 Pulse Ox 95 12/04/24 11:19 Oxygen Delivery Method Room Air 12/04/24 11:19 BMI result Body Mass Index 33.9 HEENT Other: hearing screening whisper test- failed on right side Eyes Other: vision screening- 20 20 OS OD OU Other: urinary incontinence? no Neuro Other: balance Romberg- normal tandem walk test- normal walk-in turned test- able rise from sit to stand- within 2 seconds Assessment & Plan Assessment & Plan (1) Medicare annual wellness visit, subsequent: Code(s): Z00.00 - Encounter for general adult medical examination without abnormal findings Plan: As per HPI (2) Osteoporosis: Code(s): M81.0 - Age-related osteoporosis without current pathological fracture Qualifiers: Osteoporosis type: age-related Presence of current pathological fracture: unspecified Qualified Code(s): M81.0 - Age-related osteoporosis without current pathological fracture Plan: Patient has a history of osteoporosis, has been on Fosamax for few years now. Will do bone density (3) Right SNHL: Code(s): H90.5 - Unspecified sensorineural hearing loss Qualifiers: Contralateral hearing status: unspecified Qualified Code(s): H90.5 - Unspecified sensorineural hearing loss Plan: Patient is having difficulty hearing out of right ear, will send do hearing center for audiological evaluation Orders: Orders XR DEXA axial skeleton Today M81.0 - Age-related osteoporosis without current pathological fracture, Z78.0 - Asymptomatic menopausal state Microalbumin, Random (w Creat) Today I10 - Essential (primary) hypertension Comprehensive Dante. Panel Fast Today I10 - Essential (primary) hypertension Hemoglobin A1c Today R73.09 - Other abnormal glucose Complete Blood Count no Diff Today I10 - Essential (primary) hypertension Lipid Panel Today I10 - Essential (primary) hypertension Referrals Speech and Hearing Referral H90.5 - Unspecified sensorineural hearing loss Medications: Refilled lisinopril 5 mg PO DAILY 90 tabs 3RF 90 days I10 - Essential (primary) hypertension hydrochlorothiazide 25 mg PO DAILY 90 tabs 3RF 90 days I10 - Essential (primary) hypertension omeprazole 40 mg PO DAILY 90 caps 3RF 90 days K21.9 - Gastro-esophageal reflux disease without esophagitis alendronate 70 mg PO QWEEK 12 tabs 3RF 12 weeks M81.0 - Age-related osteoporosis without current pathological fracture Quality Reporting (2020) Depression/Bipolar (159/160/161/177) PHQ-9: Total score: 0 Coding Level of Care Code Medicare Subsequent (G0439) Diagnoses Medicare annual wellness visit, subsequent Z00.00 Age related osteoporosis, unspecified pathological fracture presence M81.0 Osteoporosis type: age-related Presence of current pathological fracture: unspecified Sensorineural hearing loss (SNHL) of right ear, unspecified hearing status on contralateral side H90.5 Contralateral hearing status: unspecified CPT Codes Advance Care Planning - Time spent: 1-15 minutes, not on file ([id number]) Additional Codes MANJU-7 Assessment Billing - MANJU-7 Assessment Tool: MANJU-7 Assessment 10642 ([id number]) PHQ-9 - 70111 - PHQ-9 Billing: Yes ([id number]) Advance Care Planning Advance Care Planning discussion: Exists, not on file Date of discussion: 12/04/24 Forms completed: MOLST Time spent: 1-15 minutes, not on file Actual minutes spent: 2
--- OUTSIDE RECORDS SUMMARY | 2024-12-04 14:04 | XMS_ITS | Patient Health Record ---
Author Organization [facility] Address [address] [place] [address] Care Team Providers Care Riveting Machine Operator Name Role Phone Don Aguilar Primary Care Provider Unavailab mayra Casas Jose Colon [phone] Allergies No Known Allergies Reason For Referral No Information Medications Medication SIG (Take, Route, Frequency, Duration) Notes Start Date End Date Status hydroCHLOROthiazide 25 MG 1 tablet Orall y Once a day Active Lisinopril 5 MG 1 tablet Orally Once a day Active Liliana Allergy 180 MG 1 tablet Orally O nce a day Not-Taking Alendronate Sodium 70 MG Oral; Duration: 84 Active Omeprazole 40 MG 1 capsule Orally Onc e a day Active Problems Problem Type SNOMED Code ICD Code Onset Dates Problem Status W/U Status Risk Notes Problem Screening for malignant neoplasm of colon (400915677) Encounter for screening for malignant neoplasm of colon (Z12.11) Active confirmed Problem Pre-procedure evaluation check (123903020) Encounter for other preprocedural examination (Z01.818) Active confirmed Problem Diverticular disease of colon (538438434) Diverticulosis of large intestine without perforation or abscess without bleeding (K57.30) Active confirmed Encounters Encounter Location Date Provider Diagnosis [facility] [place] [address]patient [address] [place], [place] [id number] 01/14/2024 Jose Casas Colon cancer scree gregory [...] hemorrhoids (ICD-10 - K64.8) Plan Of Treatment Future Test Test Name Order Date COLONOSCOPY 08/20/2013 COLONOSCOPY 10/09/2023 Insurance Providers Payer Name Payer Address Payer Phone Subscriber Number Group Number Insured Name Patient Relationship to Insured Coverage Start Date Coverage End Date MEDICARE OF [place] [address] [place] [address] [id number] ANG PACK Self - patient is the insured [facility] [address] [address] [place] [address] [id number] ANG PACK Self - patient is the insured Medical (General) History Medical History History ICD Code Screening Colonoscopy 06/15/2003--negati ve for polyps Denies NH,DM,CVA,Lung disease,renal dise ase HTN GERD-EGD [id number] HH-no eso phagitis nor Negron's Colonoscopy in 10/2013 with only a hyperp lastic polyp removed Osteoporosis Surgical History Surgery Date(Month/Year) ESME and appendix
== END 2024-12-04 11:53 | disposition home or self-care (01) ==
LOC: HO.HMCH 11:13
PROVIDERS: PCP Physician Assistant; Visit Provider Physician Assistant
DX: Z00.00 Encounter for general adult medical examination without abnormal findings (principal); M81.0 Age-related osteoporosis without current pathological fracture; H90.5 Unspecified sensorineural hearing loss

== ENCOUNTER → 2024-12-04 11:13 | Outpatient (BNVA) | payer MEDICARE, OTHER, SELFPAY | PROVIDERS: PCP Physician Assistant; Visit Provider Physician Assistant | DX: Z13.31 Encounter for screening for depression (principal); Z13.39 Encounter for screening examination for other mental health and behavioral disorders | CPT/HCPCS: 96127 ==